=== PATIENT | female | born 1985 | race Caucasian/White ===

== ENCOUNTER 2017-02-11 11:32 | Emergency (ER) | payer OTHER ==
[2017-02-11 11:43] VITALS: BP 127/78; PULSE 72; TEMP 98.1; BMI 38.8
--- NOTE | 2017-02-11 12:16 | PDOC ---
History of Present Illness - General Chief Complaint: Back Pain Stated Complaint: BACK PAIN Time Seen by Provider: 02/11/17 11:50 History Source: Patient Exam Limitations: No Limitations - History of Present Illness Initial Comments: 02/11/17 12:22 Patient had recurrence of low back pain that started yesterday that is similar to her previous back issue. Was seen here approximately 4 months ago and was treated for spasm.. Uncertain as to status but does not feel is . States was treated with cyclobenzaprine and Motrin which resolved her pain completely. Denies Fever, shortness of breath cough, any problems with bowel or bladder, denies numbness or tingling to hands or feet, denies any exercise changes or recent injury/trauma. 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 daily Occurred: reports: yesterday Severity: reports: moderate Pain Location: reports: back Modifying Factors: improves with: None Loss of Consciousness: no loss of consciousness Associated Symptoms (Fall): denies symptoms Past History - Travel Traveled outside of the country in the last 30 days: No Close contact w/someone who was outside of country & ill: No - Past Medical History Allergies/Adverse Reactions: Allergies Allergy/AdvReac Type Severity Reaction Status Date / Time No Known Allergies Allergy Verified 02/11/17 12:09 Home Medications: Ambulatory Orders Cyclobenzaprine HCl [Flexeril 10 mg] 10 mg PO BID PRN #14 tablet 02/11/17 Nitrofurantoin Monohyd/M-Cryst [Macrobid -] 100 mg PO BID #14 capsule 02/11/17 Asthma: No Cancer: No Cardiac Disorders: No Diabetes: No HTN: No Seizures: No Thyroid Disease: No - Surgical History Cholecystectomy: Yes - Reproductive History (#): 4 Para: 3 Therapeutic (s) & number: Yes (1) - Suicide/Smoking/Psychosocial Hx Smoking Status: No Smoking History: Never smoked Have you smoked in the past 12 months: No Number of Cigarettes Smoked Daily: 0 Hx Alcohol Use: No Drug/Substance Use Hx: No Substance Use Type: None Hx Substance Use Treatment: No Trauma Specific PMHX - Complaint Specific PMHX Arthritis: No Back Injury: Yes (last year had same symptoms ) Review of Systems - Review of Systems Able to Perform ROS?: Yes Is the patient limited Maori proficient: Yes Constitutional: Yes: Symptoms Reported, See HPI, Malaise. No: Fever, Loss of Appetite HEENTM: Yes: See HPI. No: Symptoms Reported Musculoskeletal: Yes: Symptoms Reported, See HPI, Muscle Pain Integumentary: No: Symptoms Reported All Other Systems: Reviewed and Negative *Physical Exam - Vital Signs Last Vital Signs Temp Pulse Resp BP Pulse Ox 98.1 F 72 16 127/78 99 02/11/17 11:41 02/11/17 11:41 02/11/17 11:41 02/11/17 11:41 02/11/17 11:41 - Physical Exam General Appearance: Yes: Appropriately Dressed, Apparent Distress HEENT: positive: Normal ENT Inspection, TMs Normal, Pharynx Normal Neck: positive: Supple. negative: Tender Respiratory/Chest: positive: Lungs Clear Musculoskeletal: positive: Normal Inspection, Decreased Range of Motion, Muscle Spasm (tenderness and spasm palpated to the right and left paravertebral spinous muscles primarily lumbar spine, worse on the right than the left. Range of motion is limited secondary to this tenderness. Has no true bone tenderness or vertebral crepitus or step-offs.). negative: CVA Tenderness Extremity: positive: Normal Capillary Refill, Normal Inspection Integumentary: positive: Dry, Warm, Pale. negative: Normal Color Neurologic: positive: laboratory cureman II-XII NML intact, Fully Oriented, Alert, Normal Mood/ Affect, Normal Response, Motor Strength 5/5 Progress Note - Progress Note Progress Note: Back strain, will treat with NSAIDs and cyclobenzaprine. Medical Decision Making - Medical Decision Making 02/11/17 12:50 With analysis of urinalysis shows +3 leukocyte esterase but minimal bacteria. Patient states has had frequency over the past few days without burning pain or foul smell but states has had frequent urges to go. We will treat with Macrobid and watch for culture results in the next 2 days *DC/Admit/Observation/Transfer Diagnosis at time of Disposition: Low back pain Qualifiers: Chronicity: acute Back pain laterality: unspecified Sciatica presence: without sciatica Qualified Code(s): M54.5 - Low back pain UTI (urinary tract infection) Qualifiers: Urinary tract infection type: acute cystitis Hematuria presence: without hematuria Qualified Code(s): N30.00 - Acute cystitis without hematuria - Discharge Dispostion Disposition: HOME Condition at time of disposition: Stable Admit: No - Referrals - Patient Instructions Printed Discharge Instructions: DI for Back Strain or Sprain Additional Instructions: Rest, no heavy lifting or exercise until pain is resolved Hot soaks to neck and low back as often as possible/hot showers or Jacuzzis No massage or therapy until spasm is gone Continue ibuprofen 2-200 mg tablets every 6 hours for the next 3 days then as needed for pain and swelling Cyclobenzaprine 1-10mg every 8 hours as needed for spasm If not significant improvement within 24 hours with medication and rest regime, followup with private physician for change in medications and /or therapy. - Post Discharge Activity Forms/Work/School Notes: Back to Work
[2017-02-11 12:30] LABS: URINE APPEARANCE CLOUDY; URINE BILIRUBIN NEGATIVE (NEGATIVE); URINE BLOOD NEGATIVE (NEGATIVE); URINE COLOR YELLOW; URINE GLUCOSE (UA) NEGATIVE (NEGATIVE); URINE KETONE NEGATIVE (NEGATIVE); URINE NITRITE NEGATIVE (NEGATIVE); URINE PROTEIN NEGATIVE (NEGATIVE); URINE UROBILINOGEN NEGATIVE mg/dL (0.2-1.0)
[2017-02-11 12:31] LABS: HCG,QUALITATIVE URINE NEGATIVE
[2017-02-11 12:32] LABS: URINE LEUK ESTERASE 3+ (NEGATIVE)
[2017-02-11 12:33] LABS: EPI CELLS MANY /HPF (FEW); URINE BACTERIA RARE /hpf (NONE SEEN); URINE MUCUS RARE
[2017-02-11] MEDS ORDERED: KETOROLAC TROMETHAMINE 60 MG/2 ML VIAL IM ONE (12:44)
[2017-02-11] MEDS ORDERED: KETOROLAC TROMETHAMINE 60 MG/2 ML VIAL ONE (12:50)
== END 2017-02-11 12:55 | disposition home or self-care (01) ==
LOC: JERFT 11:32
PROC: 3E0233Z Introduction of Anti-inflammatory into Muscle, Percutaneous Approach (ICD-10-PCS; principal; 2017-02-11)
DX: N30.00 Acute cystitis without hematuria (principal)
CPT/HCPCS: 81003; 81015; 84703; 87086; 96372; 99281-25

== ENCOUNTER 2017-03-13 17:13 | Emergency (ER) | payer OTHER ==
--- NOTE | 2017-03-13 17:32 | PDOC ---
Rapid Medical Evaluation Time Seen by Provider: 03/13/17 17:32 Medical Evaluation: Allergies Allergy/AdvReac Type Severity Reaction Status Date / Time No Known Allergies Allergy Verified 02/11/17 12:09 03/13/17 17:32 This is an otherwise healthy 32 year old female who presents with one day of vaginal discharge. Recently completed course of Macrobid for UTI. Suprapubic pain, no other abdominal pain. V/s unremarkable. UA/culture Urine Urine GC/CT
[2017-03-13 17:35] VITALS: BP 118/82; PULSE 72; TEMP 98.2; BMI 40.0
[2017-03-13 18:34] LABS: HCG,QUALITATIVE URINE NEGATIVE
[2017-03-13 18:35] LABS: URINE APPEARANCE CLEAR; URINE BILIRUBIN NEGATIVE (NEGATIVE); URINE BLOOD 1+ (NEGATIVE); URINE COLOR STRAW; URINE GLUCOSE (UA) NEGATIVE (NEGATIVE); URINE KETONE NEGATIVE (NEGATIVE); URINE NITRITE NEGATIVE (NEGATIVE); URINE PROTEIN NEGATIVE (NEGATIVE); URINE UROBILINOGEN NEGATIVE mg/dL (0.2-1.0)
[2017-03-13 18:36] LABS: URINE LEUK ESTERASE 2+ (NEGATIVE)
[2017-03-13 19:13] LABS: EPI CELLS RARE /HPF (FEW); URINE BACTERIA RARE /hpf (NONE SEEN)
[2017-03-13] MEDS ORDERED: AZITHROMYCIN 250 MG TABLET PO ONE (19:20)
--- NOTE | 2017-03-13 19:20 | PDOC ---
History of Present Illness - General Chief Complaint: Vaginal Sxs Stated Complaint: PAIN Time Seen by Provider: 03/13/17 17:32 History Source: Patient - History of Present Illness Timing/Duration: reports: constant Abdominal Pain Onset Location: reports: other (pelvic) Past History - Past Medical History Allergies/Adverse Reactions: Allergies Allergy/AdvReac Type Severity Reaction Status Date / Time No Known Allergies Allergy Verified 03/13/17 17:32 Home Medications: Ambulatory Orders Doxycycline Hyclate 100 mg PO BID #27 tablet 03/13/17 Ibuprofen [Motrin -] 600 mg PO QID #28 tablet 03/13/17 Asthma: No Cancer: No Cardiac Disorders: No Diabetes: No HTN: No Seizures: No Thyroid Disease: No - Surgical History Cholecystectomy: Yes - Reproductive History (#): 4 Para: 3 Therapeutic (s) & number: Yes (1) - Suicide/Smoking/Psychosocial Hx Smoking Status: No Smoking History: Never smoked Have you smoked in the past 12 months: No Number of Cigarettes Smoked Daily: 0 Hx Alcohol Use: No Drug/Substance Use Hx: No Substance Use Type: None Hx Substance Use Treatment: No Review of Systems - Review of Systems Constitutional: No: Chills, Fever ABD/GI: Yes: Abdominal cramping. No: Nausea, Vomiting : Yes: Discharge, Frequency. No: Dysuria, Flank Pain *Physical Exam - Vital Signs Last Vital Signs Temp Pulse Resp BP Pulse Ox 98.2 F 72 18 118/82 100 03/13/17 17:32 03/13/17 17:32 03/13/17 17:32 03/13/17 17:32 03/13/17 17:32 - Physical Exam General Appearance: Yes: Appropriately Dressed. No: Apparent Distress HEENT: positive: Normal Voice Neck: positive: Supple Respiratory/Chest: negative: Respiratory Distress Female Pelvic Exam: positive: cervical os closed, discharge (mod amount of yellow discharge), adnexal tenderness (on the R, no CMT). negative: CMT Gastrointestinal/Abdominal: positive: Normal Bowel Sounds, Tender (over mid suprapubic, NT over mcburneys, no CVAT), Soft. negative: Distended, Guarding, Rebound Musculoskeletal: negative: CVA Tenderness Integumentary: positive: Dry, Warm Neurologic: positive: Fully Oriented, Alert, Normal Mood/Affect ED Treatment Course - ADDITIONAL ORDERS Additional order review: Laboratory Results 03/13/17 17:47 Urine Color Straw Urine Appearance Clear Urine pH 6.0 Ur Specific [place] 1.006 Urine Protein Negative Urine Glucose (UA) Negative Urine Ketones Negative Urine Blood 1+ H Urine Nitrite Negative Urine Bilirubin Negative Urine Urobilinogen Negative Ur Leukocyte Esterase 2+ H Urine HCG, Qual Negative Medical Decision Making - Medical Decision Making 03/13/17 19:07 32-year-old female, , no medical history here with mid lower abdominal pain 2 days, constant and associated with brown discharge today. No foul odor or itching. Also report possible urinary frequency. No flank pain, nausea, vomiting, fever or chills. No history of UTIs or STDs. No new sexual partners. No history of similar symptoms. Pt well-appearing and stable with tenderness to mid lower abdomen with moderate amount of yellowish discharge from cervix with right adnexal tenderness concerning forn for PID. Urine negative. UA unremarkable. STD culture sent. 1 g of azithro po, 250 IM of Rocephin given in ED, along with first dose of doxycycline. DC with Doxy for 2 weeks. Strict return precautions given *DC/Admit/Observation/Transfer Diagnosis at time of Disposition: Pelvic pain - Discharge Dispostion Disposition: HOME Condition at time of disposition: Good - Prescriptions Prescriptions: Doxycycline Hyclate 100 mg PO BID #27 tablet Ibuprofen [Motrin -] 600 mg PO QID #28 tablet - Referrals Referrals: Julianna Magdaleno MD [Primary Care Provider] - - Patient Instructions Printed Discharge Instructions: DI for Pelvic Inflammatory Disease Additional Instructions: You might have a condition called pelvic inflammatory disease, which is most commonly caused by STDs and other bacteria. We sent off your STD cultures and will call you in 2-3 days if it's positive. Please take doxycycline as directed for 2 weeks. Return to ER immediately for worsening of symptoms - Post Discharge Activity
[2017-03-13] MEDS ORDERED: DOXYCYCLINE HYCLATE 100 MG CAPSULE PO ONE ×2 (19:21→19:28)
[2017-03-13] MEDS ORDERED: AZITHROMYCIN 500 MG TABLET ONE ×2 (19:24→19:27)
[2017-03-13] MEDS ORDERED: IBUPROFEN 400 MG TABLET (FP) PO ONE ×2 (19:25→19:41)
== END 2017-03-13 19:51 | disposition home or self-care (01) ==
LOC: JERFT 17:13
DX: R10.2 Pelvic and perineal pain (principal); N89.8 Other specified noninflammatory disorders of vagina
CPT/HCPCS: 36415; 81003; 81015; 84703; 87086; 87491; 87591; 96372; 99281-25

== ENCOUNTER 2017-06-11 16:39 | Emergency (ER) | payer OTHER ==
[2017-06-11 17:29] VITALS: TEMP 98.9; BMI 40.6
[2017-06-11] MEDS ORDERED: ACETAMINOPHEN 500 MG TABLET (FP) PO ONE (17:52)
--- NOTE | 2017-06-11 18:19 | PDOC ---
History of Present Illness - General Chief Complaint: Vaginal Bleeding Stated Complaint: VAGINAL BLEEDING (6 WKS ) Time Seen by Provider: 06/11/17 17:11 History Source: Patient Exam Limitations: No Limitations - History of Present Illness Travel History: No Initial Comments: 06/11/17 18:00 32-year-old female presents to the ED for evaluation of vaginal bleeding. Patient states this approximate 6 weeks based on her LMP and did a home test last week which confirmed the . Patient states is followed by Dr. Radha Johnson and has her first appointment tomorrow. Patient states did not have an ultrasound for this and decided come to the ER when she had noticed vaginal bleeding upon urination this morning. Patient has no abdominal pain except for mild low back pain which she describes an aching pressure. Patient has no history of ectopic and denies any urinary complaints. Timing/Duration: reports: intermittent Quality: reports: mild Activities at Onset: reports: none Aggravating Factors: improves with: None Alleviating Factors: improves with: None Past History - Past Medical History Allergies/Adverse Reactions: Allergies Allergy/AdvReac Type Severity Reaction Status Date / Time No Known Allergies Allergy Verified 06/28/17 10:36 Home Medications: Ambulatory Orders Cephalexin Monohydrate [Keflex -] 500 mg PO BID #14 capsule 06/28/17 Asthma: No Cancer: No Cardiac Disorders: No COPD: No Diabetes: No HTN: No Seizures: No Thyroid Disease: No - Surgical History Cholecystectomy: Yes - Reproductive History (#): 4 Para: 3 Therapeutic (s) & number: Yes (1) - Suicide/Smoking/Psychosocial Hx Smoking Status: No Smoking History: Never smoked Have you smoked in the past 12 months: No Number of Cigarettes Smoked Daily: 0 Information on smoking cessation initiated: No Hx Alcohol Use: No Drug/Substance Use Hx: No Substance Use Type: None Hx Substance Use Treatment: No Patient Lives Alone: No Lives with/in: spouse/SO Review of Systems - Review of Systems Able to Perform ROS?: No Constitutional: No: Symptoms Reported HEENTM: No: Symptoms Reported Respiratory: No: Symptoms reported Cardiac (ROS): No: Symptoms Reported ABD/GI: Yes: Abdominal cramping (mild mid lower) : Yes: Discharge Musculoskeletal: Yes: Back Pain Integumentary: No: Symptoms Reported Neurological: No: Symptoms reported Endocrine: No: Symptoms Reported *Physical Exam - Vital Signs Last Vital Signs Temp Pulse Resp BP Pulse Ox 98.9 F 69 18 93/67 100 06/11/17 17:26 06/11/17 17:26 06/11/17 17:26 06/11/17 17:26 06/11/17 17:26 - Physical Exam General Appearance: Yes: Nourished, Appropriately Dressed. No: Apparent Distress HEENT: negative: Pale Conjunctivae Neck: positive: Normal Thyroid, Supple Respiratory/Chest: positive: Lungs Clear, Normal Breath Sounds. negative: Respiratory Distress, Accessory Muscle Use Cardiovascular: positive: Regular Rhythm, Regular Rate. negative: Murmur Female Pelvic Exam: positive: normal external exam (minimal pinkish red blood, no clots) Gastrointestinal/Abdominal: positive: Soft, Tenderness (mid suprapubic) Integumentary: positive: Normal Color, Warm, Moist Neurologic: positive: Motor Strength 5/5 (ambulatory) ED Treatment Course - LABORATORY CBC & Chemistry Diagram: 06/11/17 18:15 06/11/17 18:15 Medical Decision Making - Medical Decision Making 06/11/17 18:00 Patient here with complaints of vaginal spotting since urinating this morning. Patient on exam had mild mid suprapubic tenderness . Patient has not had an ultrasound for this and has no other complaints at this time. Patient ordered for CBC, comp, urine urine culture, beta hCG, type and screen and ultrasound. Patient also ordered Tylenol for pain. 06/11/17 18:56 Laboratory Tests 06/11/17 06/11/17 18:15 18:15 WBC 8.1 Hgb 12.4 D Hct 35.3 D Neutrophils % 65.9 Urine Blood 2+ H Urine Nitrite Negative Ur Leukocyte Esterase Trace Pt sent to u/s. *DC/Admit/Observation/Transfer Diagnosis at time of Disposition: Threatened - Discharge Dispostion Disposition: HOME Condition at time of disposition: Good - Referrals Referrals: Tiffany Johnson MD [Primary Care Provider] - - Patient Instructions Printed Discharge Instructions: Threatened Additional Instructions: drink plenty of fluids. 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 - Post Discharge Activity Forms/Work/School Notes: Back to Work
[2017-06-11] MEDS ORDERED: ACETAMINOPHEN 325 MG TABLET (FP) ONE (18:24)
[2017-06-11 18:42] LABS: BASO % 0.5 % (0-2.0); EOS % 1.7 % (0-4.5); HEMATOCRIT 35.3 % (32.4-45.2); HEMOGLOBIN 12.4 GM/dL (10.7-15.3); LYMPH % 27.2 % (8-40); MCH 31.9 pg (25.7-33.7); MCHC 35.1 g/dl (32.0-36.0); MEAN CELL VOLUME 90.8 fl (80-96); MEAN PLT VOLUME 8.1 fl (7.5-11.1); MONO % 4.7 % (3.8-10.2); NEUT % 65.9 % (42.8-82.8); PLATELET COUNT 270 K/MM3 (134-434); RBC 3.89 M/mm3 (3.60-5.2); RDW 13.9 % (11.6-15.6); WHITE BLOOD COUNT 8.1 K/mm3 (4.0-10.0)
[2017-06-11 18:44] LABS: URINE APPEARANCE CLEAR; URINE BILIRUBIN NEGATIVE (<2.0 mg/dL); URINE COLOR LTYELLOW; URINE GLUCOSE (UA) NEGATIVE (NEGATIVE); URINE KETONE NEGATIVE (NEGATIVE); URINE LEUK ESTERASE TRACE (NEGATIVE); URINE NITRITE NEGATIVE (NEGATIVE); URINE PROTEIN NEGATIVE (NEGATIVE); URINE UROBILINOGEN NEGATIVE mg/dL (0.2-1.0)
[2017-06-11 18:48] LABS: EPI CELLS RARE /HPF (FEW); URINE BACTERIA RARE /hpf (NONE SEEN)
[2017-06-11 19:25] LABS: ALBUMIN 3.8 g/dl (3.4-5.0); ANION GAP 9 (8-16); BILIRUBIN,TOTAL 0.3 mg/dL (0.2-1.0); BLOOD UREA NITROGEN 8 mg/dL (7-18); CALCIUM 8.7 mg/dL (8.5-10.1); CHLORIDE 106 mmol/L (98-107); CO2 22 mmol/L (21-32); CREATININE 0.5 mg/dL (0.55-1.02); GLUCOSE,RANDOM 82 mg/dL (74-106); POTASSIUM 3.9 mmol/L (3.5-5.1); SGOT/AST 28 U/L (15-37); SGPT/ALT 47 U/L (12-78); SODIUM 137 mmol/L (136-145); TOT PROT 7.8 g/dl (6.4-8.2)
[2017-06-11 19:41] LABS: ALK PHOS 89 U/L (45-117)
--- NOTE | 2017-06-11 20:56 | PDOC ---
*Physical Exam - Vital Signs Last Vital Signs Temp Pulse Resp BP Pulse Ox 98.9 F 69 18 93/67 100 06/11/17 17:26 06/11/17 17:26 06/11/17 17:26 06/11/17 17:26 06/11/17 17:26 - Physical Exam General Appearance: Yes: Appropriately Dressed Gastrointestinal/Abdominal: positive: Normal Bowel Sounds, Soft. negative: Tender Musculoskeletal: positive: Normal Inspection Extremity: positive: Normal Capillary Refill, Normal Inspection, Normal Range of Motion Integumentary: positive: Normal Color, Dry, Warm Neurologic: positive: Fully Oriented, Alert, Normal Mood/Affect ED Treatment Course - LABORATORY CBC & Chemistry Diagram: 06/11/17 18:15 06/11/17 18:15 - ADDITIONAL ORDERS Additional order review: Laboratory Results 06/11/17 06/11/17 06/11/17 18:15 18:15 18:15 Sodium 137 Potassium 3.9 Chloride 106 Carbon Dioxide 22 Anion Gap 9 BUN 8 Creatinine 0.5 L Creat Clearance w eGFR > 60 Random Glucose 82 Calcium 8.7 Total Bilirubin 0.3 D AST 28 ALT 47 Alkaline Phosphatase 89 Total Protein 7.8 Albumin 3.8 Beta HCG, Quant 71879.6 Urine Color Ltyellow Urine Appearance Clear Urine pH 6.0 Ur Specific [place] 1.011 Urine Protein Negative Urine Glucose (UA) Negative Urine Ketones Negative Urine Blood 2+ H Urine Nitrite Negative Urine Bilirubin Negative Urine Urobilinogen Negative Ur Leukocyte Esterase Trace Urine WBC (Auto) 4 Urine RBC (Auto) <1 Ur Epithelial Cells Rare Urine Bacteria Rare Blood Type O POSITIVE Antibody Screen Negative 06/11/17 18:15 RBC 3.89 MCV 90.8 MCHC 35.1 RDW 13.9 D MPV 8.1 Neutrophils % 65.9 Lymphocytes % 27.2 D Monocytes % 4.7 Eosinophils % 1.7 D Basophils % 0.5 - Medications Given in the ED: ED Medications Discontinued Medications Generic Name Dose Route Start Last Admin Trade Name Freq PRN Reason Stop Dose Admin Acetaminophen 975 mg 06/11/17 17:52 06/11/17 18:30 Tylenol - PO 06/11/17 17:53 975 mg ONCE ONE Administration Medical Decision Making - Medical Decision Making 06/11/17 20:45 + IUP 6 weeks with heart activity documented. Small to moderate subchorionic hemorrhage. US results discussed with patient. patient to follow up with manager of purchasing outpatient *DC/Admit/Observation/Transfer Diagnosis at time of Disposition: Threatened - Discharge Dispostion Disposition: HOME Condition at time of disposition: Good - Referrals Referrals: Tiffany Johnson MD [Primary Care Provider] - - Patient Instructions Printed Discharge Instructions: Threatened Additional Instructions: drink plenty of fluids. pelvic rest follow up with your manager of purchasing as soon as possible. - Post Discharge Activity Forms/Work/School Notes: Back to Work
[2017-06-11 21:12] VITALS: BP 100/70; PULSE 79
== END 2017-06-11 21:13 | disposition home or self-care (01) ==
LOC: JER 16:39
DX: O26.891 Other specified pregnancy related conditions, first trimester (principal); O20.0 Threatened abortion; Z3A.01 Less than 8 weeks gestation of pregnancy
CPT/HCPCS: 36415; 76801-TC; 80053; 81003; 81015; 84702; 85025; 86850; 86900; 86901; 87086; 99284-25

== ENCOUNTER 2017-06-28 10:28 | Emergency (ER) | payer OTHER ==
[2017-06-28 10:39] VITALS: TEMP 98.4; BMI 39.1
--- NOTE | 2017-06-28 11:17 | PDOC ---
History of Present Illness - General Chief Complaint: Vaginal Bleeding Stated Complaint: BLEEDING (9 WKS ) Time Seen by Provider: 06/28/17 11:02 History Source: Patient Exam Limitations: No Limitations - History of Present Illness Initial Comments: 06/28/17 11:14 The patient is a 32F at 9 weeks who presents to the ER with bleeding in her urine. The patient states that she had similar symptoms 2-3 weeks ago and was evaluated in our facility. The patient states that 45 minutes ago she felt suprapubic pressure and had blood in her urine. She denies any vaginal bleeding , discharge, or cramping. She denies fever, chills, dyuria, nausea, vomiting. Past History - Past Medical History Allergies/Adverse Reactions: Allergies Allergy/AdvReac Type Severity Reaction Status Date / Time No Known Allergies Allergy Verified 06/28/17 10:36 Home Medications: Ambulatory Orders Cephalexin Monohydrate [Keflex -] 500 mg PO BID #14 capsule 06/28/17 Asthma: No Cancer: No Cardiac Disorders: No COPD: No Diabetes: No HTN: No Seizures: No Thyroid Disease: No Other medical history: DENIES. - Surgical History Cholecystectomy: Yes - Reproductive History (#): 4 Para: 3 Therapeutic (s) & number: Yes (1) - Immunization History Immunization Up to Date: Yes - Suicide/Smoking/Psychosocial Hx Smoking Status: No Smoking History: Never smoked Have you smoked in the past 12 months: No Number of Cigarettes Smoked Daily: 0 Hx Alcohol Use: No Drug/Substance Use Hx: No Substance Use Type: None Hx Substance Use Treatment: No Review of Systems - Review of Systems Able to Perform ROS?: Yes Comments:: 06/28/17 11:18 GENERAL/CONSTITUTIONAL: No fever or chills. No weakness. HEAD, EYES, EARS, NOSE AND THROAT: No change in vision. No ear pain or discharge. No sore throat. CARDIOVASCULAR: No chest pain, palpitations, or lightheadedness. RESPIRATORY: No cough, wheezing, shortness of breath, or hemoptysis. GASTROINTESTINAL: No nausea, vomiting, diarrhea, constipation, or abdominal pain. GENITOURINARY: Positive for hematuria. No dysuria, frequency, or change in urination. MUSCULOSKELETAL: No joint or muscle swelling or pain. No neck or back pain. SKIN: No rash or lesions. NEUROLOGIC: No headache, numbness, tingling, weakness, loss of consciousness, or change in strength/sensation. ENDOCRINE: No increased thirst. No abnormal weight change. HEMATOLOGIC/LYMPHATIC: No anemia, easy bleeding, or history of blood clots. ALLERGIC/IMMUNOLOGIC: No hives or skin allergy. Is the patient limited Mongolian proficient: No *Physical Exam - Vital Signs Last Vital Signs Temp Pulse Resp BP Pulse Ox 98.4 F 78 17 114/74 98 06/28/17 10:37 06/28/17 10:37 06/28/17 10:37 06/28/17 10:37 06/28/17 10:37 - Physical Exam Comments: 06/28/17 11:18 GENERAL: Well developed, well nourished. Awake and alert. No acute distress. HEENT: Normocephalic, atraumatic. Hearing grossly normal. Moist mucous membranes. PERRLA, EOMI. No conjunctival pallor. Sclera are non-icteric. NECK: Supple. Full ROM. CARDIOVASCULAR: Regular rate and rhythm. No murmurs, rubs, or gallops. PULMONARY: No evidence of respiratory distress. Lungs clear to auscultation bilaterally. No wheezing, rales or rhonchi. ABDOMINAL: Soft. Non-tender. Non-distended. No rebound or guarding. GENITOURINARY: No CVA tenderness bilaterally. PELVIC: Normal external genitalia. No CMT. L adnexal tenderness. MUSCULOSKELETAL: Normal range of motion at all joints. No bony deformities or tenderness. EXTREMITIES: No cyanosis. No clubbing. No edema. No calf tenderness or swelling. SKIN: Warm and dry. Normal capillary refill. No rashes. No jaundice. NEUROLOGICAL: Alert, awake, appropriate. Cranial nerves 2-12 intact. Normal speech. Gait is normal without ataxia. PSYCHIATRIC: Cooperative. Good eye contact. Appropriate mood and affect. ED Treatment Course - LABORATORY CBC & Chemistry Diagram: 06/28/17 11:30 06/28/17 11:30 Medical Decision Making - Medical Decision Making 06/28/17 11:19 The patient is a 32F at 9 weeks who presents to the ER with recurrent hematuria. She was found to have a subchorionic hemorrhage which she followed up with her OB and they were not concerned. As the patient denies vaginal bleeding and discharge, I am less concerned for a miscarriage. Will perform pelvic. Will send UA and basic labs. Pending labs. 06/28/17 12:47 UA indicates hematuria with UTI. Will give one dose keflex in ED and prescribe outpt keflex with OB f/u. 06/28/17 15:41 U/S: Single, live intrauterine of 9 weeks 3 days gestational age with resolving subchorionic bleed since 06/11/2017. Will update pt and d/c with OB f/u and abx. *DC/Admit/Observation/Transfer Diagnosis at time of Disposition: Hematuria Qualifiers: Hematuria type: unspecified type Qualified Code(s): R31.9 - Hematuria, unspecified UTI (urinary tract infection) Qualifiers: Urinary tract infection type: site unspecified Hematuria presence: with hematuria Qualified Code(s): N39.0 - Urinary tract infection, site not specified ; R31.9 - Hematuria, unspecified - Discharge Dispostion Disposition: HOME Condition at time of disposition: Stable Decision to Admit order: No - Prescriptions Prescriptions: Cephalexin Monohydrate [Keflex -] 500 mg PO BID #14 capsule - Referrals - Patient Instructions Printed Discharge Instructions: DI for Hematuria Additional Instructions: Please follow up with your OBSTETRIC ASSISTANT in 2-3 days. Please return to the ER if you have any signs or symptoms of chest pain, shortness of breath, uncontrollable fever, chills, nausea, vomiting, numbness, tingling, or weakness in any part of your body, changes in vision, or slurred speech. Please take your medications as prescribed. Please return to the ER if symptoms persist, worsen, or new symptoms arise. - Post Discharge Activity
[2017-06-28 11:25] LABS: URINE APPEARANCE SLCLOUDY; URINE BILIRUBIN NEGATIVE (<2.0 mg/dL); URINE COLOR YELLOW; URINE GLUCOSE (UA) 2+ (NEGATIVE); URINE KETONE NEGATIVE (NEGATIVE); URINE NITRITE NEGATIVE (NEGATIVE); URINE PROTEIN NEGATIVE (NEGATIVE); URINE UROBILINOGEN NEGATIVE mg/dL (0.2-1.0)
[2017-06-28 11:26] LABS: URINE LEUK ESTERASE 2+ (NEGATIVE)
[2017-06-28 11:31] LABS: EPI CELLS FEW /HPF (FEW); URINE BACTERIA FEW /hpf (NONE SEEN); URINE MUCUS RARE
[2017-06-28 11:56] LABS: BASO % 0.6 % (0-2.0); EOS % 1.8 % (0-4.5); HEMATOCRIT 34.6 % (32.4-45.2); HEMOGLOBIN 11.9 GM/dL (10.7-15.3); LYMPH % 25.3 % (8-40); MCH 30.9 pg (25.7-33.7); MCHC 34.4 g/dl (32.0-36.0); MEAN CELL VOLUME 89.7 fl (80-96); MEAN PLT VOLUME 7.9 fl (7.5-11.1); MONO % 5.7 % (3.8-10.2); NEUT % 66.6 % (42.8-82.8); PLATELET COUNT 271 K/MM3 (134-434); RBC 3.85 M/mm3 (3.60-5.2); RDW 13.6 % (11.6-15.6); WHITE BLOOD COUNT 6.2 K/mm3 (4.0-10.0)
[2017-06-28 12:22] LABS: ALBUMIN 3.4 g/dl (3.4-5.0); ALK PHOS 76 U/L (45-117); ANION GAP 8 (8-16); BILIRUBIN,TOTAL 0.3 mg/dL (0.2-1.0); BLOOD UREA NITROGEN 7 mg/dL (7-18); CALCIUM 8.4 mg/dL (8.5-10.1); CHLORIDE 107 mmol/L (98-107); CO2 23 mmol/L (21-32); CREATININE 0.5 mg/dL (0.55-1.02); GLUCOSE,RANDOM 121 mg/dL (74-106); SGPT/ALT 37 U/L (12-78); SODIUM 138 mmol/L (136-145); TOT PROT 7.4 g/dl (6.4-8.2)
[2017-06-28 12:34] LABS: POTASSIUM 3.8 mmol/L (3.5-5.1); SGOT/AST 29 U/L (15-37)
[2017-06-28] MEDS ORDERED: CEPHALEXIN MONOHYDRATE 500 MG CAPSULE (UD) PO ONE (12:47)
--- NOTE | 2017-06-28 13:13 | PDOC ---
Attending Attestation - Resident Resident Name: Luis F Du - ED Attending Attestation I have performed the following: I have examined & evaluated the patient, The case was reviewed & discussed with the resident, I agree w/resident's findings & plan - HPI HPI: 06/28/17 13:10 32y/o F 19wks gestation complicate by ED visit 06/11 for subchorionic hemorrhage, treated conservatively, now with painless hematuria this morning. no other vaginal discharge or bleeding, no f/c, no cramping. - Physicial Exam PE: 06/28/17 13:11 VSS, afebrile well appearing abd soft/nt/nd bs nl . no cvat pelvic per resident note - Medical Decision Making 06/28/17 13:12 32y/o F with painless hematuria/vaginal bleeding in 2nd trimester. prior subchorionic hematoma, ? cystitis v. vaginal bleeding RH positive hcg rising UA with elevated RBC and WBC. discussed with OB, will treat empirically with abx and send cx. repeat endovaginal sono, discuss with OB
[2017-06-28] MEDS ORDERED: CEPHALEXIN MONOHYDRATE 500 MG CAPSULE (UD) ONE (13:39)
[2017-06-28 16:21] VITALS: BP 115/67; PULSE 77
== END 2017-06-28 16:21 | disposition home or self-care (01) ==
LOC: JER 10:28
DX: O26.891 Other specified pregnancy related conditions, first trimester (principal); O23.31 Infections of other parts of urinary tract in pregnancy, first trimester; R31.9 Hematuria, unspecified; Z3A.09 9 weeks gestation of pregnancy
CPT/HCPCS: 36415; 76817-TC; 80053; 81003; 81015; 84702; 85025; 87086; 99282-25

== ENCOUNTER 2017-11-28 09:29 | Emergency (ER) | payer OTHER ==
[2017-11-28 09:40] VITALS: BMI 42.7
[2017-11-28] MEDS ORDERED: SODIUM CHLORIDE 1,000 ML IV STA (09:49)
[2017-11-28] MEDS ORDERED: FAMOTIDINE 20 MG/50 ML IVPB 20 MG/50 ML MG IVPB ONE ×2 (09:49→10:14)
--- NOTE | 2017-11-28 09:53 | PDOC ---
History of Present Illness - General Chief Complaint: Pain Stated Complaint: STOMACH PAIN/VOMITING/31 WKS Time Seen by Provider: 11/28/17 09:47 History Source: Patient Exam Limitations: No Limitations - History of Present Illness Initial Comments: 11/28/17 11:07 Jed 32 YOF at 31 weeks gestation p/w epigastric pain, nausea and NBNB emesis x 1 day, beginning yesterday evening 6pm. Epigastric pain a/w food intake , described as cramping. No f/c, urinary sx, diarrhea, cp or sob, malik or dizziness. Denies VB or discharge or LOF/contractions. OB: 2 Gr[address] Morgan, Dr More TVUS 06/2017 with resolving subchorionic hematoma. Has had uncomplicated , takes prenatals AGAPITO 01/29/18. Meds: prenatals. NKA PSH: cholecystectomy Social: no tobacco or ETOH/drug use. 11/28/17 11:08 Past History - Past Medical History Allergies/Adverse Reactions: Allergies Allergy/AdvReac Type Severity Reaction Status Date / Time No Known Allergies Allergy Verified 06/28/17 10:36 Home Medications: Ambulatory Orders Doxylamine Succinate/Vit B6 [Kalpana Ortega 10-10 mg Tablet] 1 each PO DAILY PRN # 10 tablet. 11/28/17 Famotidine [Pepcid] 20 mg PO BID PRN 10 Days #20 tablet 11/28/17 Mag Hydrox/Al Hydrox/Simeth [Mylanta Suspension -] 30 ml PO Q6H PRN #1 bottle No122/Iron/Folic Acid [ Multi Tablet] 1 each PO DAILY 11/28/17 Asthma: No Cancer: No Cardiac Disorders: No COPD: No Diabetes: No HTN: No Seizures: No Thyroid Disease: No - Surgical History Cholecystectomy: Yes - Reproductive History (#): 4 Para: 3 Therapeutic (s) & number: Yes (1) Spontaneous : 0 - Immunization History Immunization Up to Date: Yes - Suicide/Smoking/Psychosocial Hx Smoking Status: No Smoking History: Never smoked Have you smoked in the past 12 months: No Number of Cigarettes Smoked Daily: 0 Information on smoking cessation initiated: No Hx Alcohol Use: No Drug/Substance Use Hx: No Substance Use Type: None Hx Substance Use Treatment: No Review of Systems - Review of Systems Able to Perform ROS?: Yes Comments:: 11/28/17 11:08 Constitutional: no fevers or chills. HEENT: no headache or dizziness. No congestion. CVS: no cp or syncope. Resp: no sob. No cough. Abdomen: +abdominal pain, nausea or vomiting. Genitourinary: no urinary sx, hematuria. MUSCULOSKELETAL: No joint pain and swelling. No neck or back pain. SKIN: no redness or skin changes, no discharge, no rash. No wounds. Hematologic: no easy bruising/bleeding. NEUROLOGIC: No headache, dizziness, LOC or altered mental status. No weakness, numbness or tingling. All other systems reviewed and negative, or as documented in HPI. *Physical Exam - Vital Signs Last Vital Signs Temp Pulse Resp BP Pulse Ox 98.2 F 89 18 107/69 98 11/28/17 09:38 11/28/17 09:38 11/28/17 09:38 11/28/17 09:38 11/28/17 09:38 - Physical Exam Comments: 11/28/17 11:07 General: Well appearing, awake and alert, NAD. HEENT: NCAT, PERRL, EOMI, clear conjunctiva, anicteric, moist mucus membranes, clear oropharynx, no oral lesions.. Neck: neck supple, FROM Resp: CTAB, normal and even respirations, no respiratory distress CVS: RRR, no murmurs, 2+ peripheral pulses throughout, no peripheral edema Abdomen: soft, +gravid/ no Romo's sign, no Mcburney's point tenderness. + epigastric and LUQ tenderness, nonperitoneal. no flank or CVAT. Back: nontender, normal inspection and ROM MSK: no edema, LOYA x4, ROM intact. No clubbing or cyanosis. normal bulk and tone. Neuro: alert, oriented appropriately; no focal neurologic deficits Skin: warm and well perfused, cap refill <2 sec, normal color ED Treatment Course - LABORATORY CBC & Chemistry Diagram: 11/28/17 10:20 11/28/17 10:20 Medical Decision Making - Medical Decision Making 11/28/17 09:52 I, Krystle Hyman MD, attest that this document has been prepared under my direction and personally reviewed by me in its entirety. I further attest, that it accurately reflects all work, treatment, procedures and medical decision -making performed by me. MDM: Jed 32 YOF at 31 weeks gestation p/w AP and n/v. TVUS 06/2017 with resolving subchorionic hematoma. DDx. pancreatitis, hepatitis, GERD, esophageal spasm, gastritis, dehydration, electrolyte/metabolic derangements, UTI, pyelo in . Vital signs reviewed, wnl. Prior notes reviewed, including admissions, discharges and consultations. laboratory results and imaging reviewed, basic labs and lytes wnl, notable for_ . LFTs and lipase also normal. UA_neg for infection. ED course: no acute events, remained stable and well appearing. Clinically improved after interventions, including Pepcid and IVF, reglan IV and maalox. tolerating PO without difficulty, feels improved.. Dispo: med clear, transfer to L&D for monitoring as >20 weeks. return precautions given. rx meds sent to pharmacy, pepcid, maalox and diclegis for n/v, epigastric pain. [facility] pt verbalized understanding of information, impression and plan, questions answered. 11/28/17 11:09 11/28/17 12:32 *DC/Admit/Observation/Transfer Diagnosis at time of Disposition: Abdominal pain affecting - Discharge Dispostion Disposition: TRANSFER ACUTE CARE/OTHER HOSP Condition at time of disposition: Improved Decision to Admit order: No - Prescriptions Prescriptions: Doxylamine Succinate/Vit B6 [Kalpana Ortega 10-10 mg Tablet] 1 each PO DAILY PRN # 10 tablet. PRN Reason: Nausea And/Or Vomiting Famotidine [Pepcid] 20 mg PO BID PRN 10 Days #20 tablet PRN Reason: Nausea Mag Hydrox/Al Hydrox/Simeth [Mylanta Suspension -] 30 ml PO Q6H PRN #1 bottle PRN Reason: Nausea - Referrals Referrals: Anaya Flores MD [Primary Care Provider] - - Patient Instructions Printed Discharge Instructions: DI for Gastroesophageal Reflux Disease (GERD), DI for Abdominal Pain -- Early , GERD Diet Additional Instructions: Your laboratory / imaging results were normal you were given medications for your reflux and pain in you are not in labor, but you will be discharged to the Labor and delivery unit for monitoring Follow up with your physician and consultants as instructed, take your medications as instructed including Diclegis daily as needed, maalox with meals as needed for heartburn and Pepcid twice a day for heart burn. Return if worsening symptoms including fevers, headache, vomiting, visual or hearing disturbances, abdominal pain, chest pain, shortness of breath, syncope, dehydration, inability to take things by mouth/vomiting, altered mental status, vaginal bleeding or discharge, leakage of fluids or concern for having your baby earlier than expected or worsening concerning symptoms. your medications on discharge were sent to your pharmacy Keke resultados de laboratorio / imgenes fueron normales Te dieron medicamentos para el reflujo y el dolor donna el embarazo. usted no est en trabajo de parto, pat ser dado de mary beth a la unidad de [place] y parto para el monitoreo Jaci un seguimiento con bishop mdico y consultores segn las instrucciones, tome keke medicamentos segn las instrucciones, incluidos Diclegis diariamente, segn sea necesario, maalox con las comidas necesarias para la acidez estomacal y Pepcid dos veces al da para la quemadura del corazn. Regrese si los sntomas empeoran, incluyendo fiebre, dolor de april, vmitos, trastornos visuales o auditivos, dolor abdominal, dolor de pecho, falta de aliento, sncope, deshidratacin, incapacidad para rony cosas por la boca / vmitos, estado mental alterado, sangrado o secrecin vaginal, prdida de [place] o preocupacin por tener a bishop beb antes de lo esperado o empeoramiento de los sntomas. Keke medicamentos al mary beth fueron enviados a bishop farmacia. Print Language: OCCITAN - Post Discharge Activity
[2017-11-28 10:34] LABS: BASO % 0.3 % (0-2.0); EOS % 0.3 % (0-4.5); HEMATOCRIT 35.8 % (32.4-45.2); LYMPH % 7.7 % (8-40); MCH 30.7 pg (25.7-33.7); MCHC 33.6 g/dl (32.0-36.0); MEAN CELL VOLUME 91.3 fl (80-96); MEAN PLT VOLUME 7.8 fl (7.5-11.1); NEUT % 88.7 % (42.8-82.8); PLATELET COUNT 236 K/MM3 (134-434); RBC 3.91 M/mm3 (3.60-5.2); WHITE BLOOD COUNT 7.9 K/mm3 (4.0-10.0)
[2017-11-28] MEDS ORDERED: MAG HYDROX/AL HYDROX/SIMETH 30 ML UNIT-DOSE CUP PO ONE (11:02)
[2017-11-28] MEDS ORDERED: METOCLOPRAMIDE HCL INJECTION 10 MG/2 ML VIAL IVPUSH ONE (11:02)
[2017-11-28] MEDS ORDERED: METOCLOPRAMIDE HCL INJECTION 10 MG/2 ML VIAL ONE (11:07)
[2017-11-28] MEDS ORDERED: MAG HYDROX/AL HYDROX/SIMETH 30 ML UNIT-DOSE CUP ONE (11:07)
[2017-11-28 11:17] LABS: ALK PHOS 141 U/L (45-117); ANION GAP 10 MMOL/L (8-16); BILIRUBIN,TOTAL 0.9 mg/dL (0.2-1); BLOOD UREA NITROGEN 8 mg/dL (7-18); CALCIUM 8.1 mg/dL (8.5-10.1); CHLORIDE 106 mmol/L (98-107); CO2 23 mmol/L (21-32); CREATININE 0.5 mg/dL (0.55-1.3); GLUCOSE,RANDOM 102 mg/dL (74-106); LIPASE 68 U/L (73-393); POTASSIUM 3.6 mmol/L (3.5-5.1); SGOT/AST 56 U/L (15-37); SGPT/ALT 45 U/L (13-61); SODIUM 139 mmol/L (136-145); TOT PROT 7.1 g/dl (6.4-8.2)
[2017-11-28 11:50] LABS: URINE APPEARANCE CLEAR; URINE BILIRUBIN NEGATIVE (<2.0 mg/dL); URINE COLOR DKYELLOW; URINE GLUCOSE (UA) NEGATIVE (NEGATIVE); URINE KETONE 1+ (NEGATIVE); URINE LEUK ESTERASE TRACE (NEGATIVE); URINE NITRITE NEGATIVE (NEGATIVE); URINE PROTEIN 1+ (NEGATIVE)
[2017-11-28 12:03] LABS: EPI CELLS FEW /HPF (FEW); URINE MUCUS FEW
[2017-11-28 12:50] VITALS: BP 110/61; PULSE 87; TEMP 97.9
== END 2017-11-28 13:20 | disposition home or self-care (01) ==
LOC: JER 09:29
DX: S09.90XA Unspecified injury of head, initial encounter (principal); V43.62XA Car passenger injured in collision with other type car in traffic accident, initial encounter; Y93.89 Activity, other specified; Y92.410 Unspecified street and highway as the place of occurrence of the external cause
CPT/HCPCS: 36415; 80053; 81003; 81015; 83690; 85025; 87086; 99283-25; J7030

== ENCOUNTER 2017-12-01 08:10 | Inpatient (IN) | payer OTHER ==
[2017-12-01] MEDS ORDERED: LACTATED RINGERS SOLUTION 500 ML IV ONE (09:00)
[2017-12-01 09:40] LABS: HEMATOCRIT 34.5 % (32.4-45.2); HEMOGLOBIN 11.4 GM/dL (10.7-15.3); MEAN PLT VOLUME 7.8 fl (7.5-11.1); PLATELET COUNT 255 K/MM3 (134-434); RDW 15.1 % (11.6-15.6); WHITE BLOOD COUNT 11.5 K/mm3 (4.0-10.0)
[2017-12-01 10:05] LABS: ALBUMIN 2.8 g/dl (3.4-5.0); ALK PHOS 134 U/L (45-117); ANION GAP 13 MMOL/L (8-16); BILIRUBIN,DIRECT 0.4 mg/dL (0.0-0.2); BLOOD UREA NITROGEN 6 mg/dL (7-18); CALCIUM 7.9 mg/dL (8.5-10.1); CHLORIDE 105 mmol/L (98-107); CO2 23 mmol/L (21-32); CREATININE 0.4 mg/dL (0.55-1.3); GLUCOSE,RANDOM 132 mg/dL (74-106); SGOT/AST 30 U/L (15-37); SGPT/ALT 46 U/L (13-61); SODIUM 140 mmol/L (136-145); TOT PROT 6.8 g/dl (6.4-8.2)
[2017-12-01] MEDS: LACTATED RINGERS SOLUTION 500 ML IV SCH ×2 (10:15→11:30)
[2017-12-01] MEDS ORDERED: morphine SULFATE 4 MG/ML VIAL IVPB STA (10:55)
[2017-12-01] MEDS ORDERED: ACETAMINOPHEN INJECTION 100 ML IVPB ONE (10:57)
--- NOTE | 2017-12-01 11:04 | HP ---
Past Medical History - Admission Chief Complaint: abdominal pain History of Present Illness: 32yo [id number] 04/24/2017 EDC 01/29 SIUP at 31.5 weeks presents with c/o abdominal pain. Patient has been seen 3x with increasing and worsening pain. Pt seen initially on 11/28 with n/v/diarrhea. Yesterday abdominal pain started and has become worse. Pt seen yesterday, noted to have contractions given terb and sent home. She presents this morning with worsening abdominal pain. + nausea, no vomiting. no appetite. Last ate yesterday. No LOF, no vaginal bleeding. 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: Alzheimer's, CVA, Dementia, Migraine, Multiple Sclerosis, Peripheral Neuropathy, Parkinson's, Seizure, Syncope, TIA, Vertigo, Other Cardiovascular: No: AFIB, Aneurysm, Aortic Insufficiency, Aortic Stenosis, CAD, CHF, Deep Vein Thrombosis, HTN, Hyperlipdemia, LA, Mitral Insufficiency, Mitral Stenosis, Murmur, Pulmonary Hypertension, Other Pulmonary: No: Asthma, Bronchitis, Cancer, COPD, O2 Dependent, Pneumonia, Previously Intubated, Pulmonary Embolus, Pulmonary Fibrosis, Sleep Apnea, Other Gastrointestinal: No: Ascites, Cancer, Constipation, Crohn's Disease, Diverticulitis, Diverticulosis, Esophageal Varices, Gastritis, GERD, GI Bleed, Hemorrhoids, Hiatal Hernia, Inflamatory Bowel Disease, Irritable Bowel Disease, Pancreatitis, Peptic Ulcer Disease, Ulcerative Colitis, Other Hepatobiliary: No: Cirrhosis, Cholelithiasis, Cholecystitis, Choledocholithiasis , Hepatitis A, Hepatitis B, Hepatitis C, Other Renal/: No: Renal Failure, Renal Inusuff, BPH, Cancer, Hematuria, Hemodialysis , Neurogenic Bladder, Renal Calculi, UTI, Other Reproductive: No: Ectopic , Endometriosis, Fibroids, PID, Polycystic Ovary Syndrome, Postmenopausal, Other ...: 7 ...Para: 5 ...Term: 4 ...: 1 ...Spon : 0 ...Induced : 1 ...LMP: 04/24/17 ... Weeks Gestation by Dates: 31.5 ...EDC by Dates: 01/29/18 ...EDC by Sono: 01/29/18 Heme/Onc: No: Anemia, B12 Deficiency, Bleeding Disorder, Cancer, Current Chemotherapy, Current Radiation Therapy, Hemochromatosis, Hypercoaguable State, Myeloproliferative Synd, Sickle Cell Disease, Sickle Cell Trait, Thrombocytopenia, Other Infectious Disease: No: AIDS, C-Diff, Herpes Zoster, HIV, MRSA, STD's, Tuberculosis, VREF, Other Psych: No: Addictions, Anxiety, Bipolar, Depression, Panic, Psychosis, Schizophrenia, Other Rheumatology: No: Fibromyalgia, Gout, Lupus, Rheumatoid Arthritis, Sarcoidosis, Vasculitis, Other ENT: No: Allergic Rhinitis, Sinusitis, Other Endocrine: No: Queen's Disease, Tyro's Disease, Diabetes Insipidus, Diabetes Mellitus, Hyperparathyroidism, Hyperthyroidism, Hypothyroidism, Osteopenia, SIADH, Other - Past Surgical History Past Surgical History: Yes: Cholecystectomy Hx Myomectomy: No Hx Transabdominal Cerclage: No - Smoking History Smoking history: Never smoked Have you smoked in the past 12 months: No Aproximately how many cigarettes per day: 0 - Alcohol/Substance Use Hx Alcohol Use: No History of Substance Use: reports: None. denies: Cocaine, Heroin, Marijuana, Prescription, Tranquilizers - Social History ADL: Independent History of Recent Travel: No Home Medications - Allergies Allergies/Adverse Reactions: Allergies Allergy/AdvReac Type Severity Reaction Status Date / Time No Known Allergies Allergy Verified 12/01/17 11:26 - Home Medications Home Medications: Ambulatory Orders No122/Iron/Folic Acid [ Multi Tablet] 1 each PO DAILY 11/28/17 Family Disease History - Family Disease History Family History: Unremarkable Family Disease History: Other: Grandparent (migraines) Review of Systems - Review of Systems Constitutional: reports: Loss of Appetite Neck: denies: No Symptoms, Decreased ROM, Lumps, Pain on Movement, Stiffness, Swollen Glands, Tenderness, Other Cardiovascular: denies: No Symptoms, Chest Pain, Edema, Palpitations, Shortness of Breath, Other Respiratory: denies: No Symptoms, Cough, Exercise Intolerance, Hemoptysis, Orthopnea, PND, Snoring, SOB, SOB on Exertion, Wheezing, Other Gastrointestinal: reports: Abdominal Pain, Nausea Breasts: denies: No Symptoms Reported, See HPI, Breast Implants, Discharge from Nipple, Lumps, Pain, Skin Changes, Other Musculoskeletal: denies: No Symptoms, Back Pain, Crepitus, Decreased ROM, Extremity Pain, Joint Pain, Joint Swelling, Muscle Pain, Muscle Cramps, Muscle Weakness, Other Integumentary: denies: No Symptoms, Blister, Bruising, Change in Color, Eczema, Erythema, Incision, Lesions, Lump, Pallor, Pruritis, Rash, Wound, Other Neurological: denies: No Symptoms, Change in LOC, Change in Speech, Confusion, Dizziness, Headache, Incoordination, Numbness, Parasthesia, Pre-Existing Deficit , Seizure, Syncope, Tremors, Unsteady Gait, Weakness, Other Endocrine: denies: No Symptoms, Excessive Sweating, Flushing, Increased Hunger, Increased Thirst, Intolerance to Cold, Intolerance to Heat, Unexplained Weight Gain, Unexplained Weight Loss, Other Hematology/Lymphatic: denies: No Symptoms, Easily Bruised, Excessive Bleeding, Swollen Glands, Other Psychiatric: reports: No Symptoms Pain Intensity: 10 Physical Exam - Maternity Vital Signs: Vital Signs Temperature 98.4 F 12/01/17 09:00 Pulse Rate 86 12/01/17 09:00 Respiratory Rate 18 12/01/17 09:00 Blood Pressure 117/51 L 12/01/17 09:00 O2 Sat by Pulse Oximetry (%) Constitutional: Yes: Anxious, Mild Distress Eyes: Yes: WNL HENT: Yes: WNL Neck: Yes: WNL Cardiovascular: Yes: WNL - Abdominal Exam/OB Fundal Height: 32 Number of Fetuses: Single Presentation: Vertex Contractions: No Monitor Mode: External Heart Rate (range): 180 Category: II Accelerations: Uniform Decelerations: None - Vaginal Exam/OB Vaginal Bleediing: No Speculum Exam: No Dilatation (cm): 1 Effacement (%): long Amniotic Membrane Status: Intact - Physical Exam Musculoskeletal: Yes: WNL Extremities: Yes: WNL Edema: No Integumentary: Yes: WNL - Labs Lab Results: CBC, BMP 12/01/17 09:10 12/01/17 09:10 Hemorrhage Risk Assessment - Risk Factors Medium Risk Factors: Yes: None High Risk Factors: Yes: None Risk Score: 1 Risk Level: Medium Risk Problem List - Problems (1) Abdominal pain affecting Assessment/Plan: 32yo at 31.5 weeks gestation with acute abdomen, r/o morphine 4mg ivpb tylenol 1000mg ordered IV bolus 1000ml [facility] called; transfer request made and accepted by Dr. Jefferson Keene Code(s): O26.899 - OTH RELATED CONDITIONS, UNSPECIFIED TRIMESTER; R10.9 - UNSPECIFIED ABDOMINAL PAIN
[2017-12-01 11:46] VITALS: BMI 42.7
[2017-12-01 11:55] VITALS: PULSE 98; TEMP 100
[2017-12-01 12:10] VITALS: BP 114/60
[2017-12-01] MEDS ORDERED: ACETAMINOPHEN 1000 MG/100 ML VIAL (NON FORMULARY) IVPB ONE (13:00)
== END 2017-12-01 12:12 | disposition short-term general hospital (02) | DRG 566 ==
LOC: JDEL 08:10 → JLDR 10:55
PROVIDERS: ADMIT Obstetrics & Gynecology; ATTEND Obstetrics & Gynecology
DX: O26.893 Other specified pregnancy related conditions, third trimester (principal); R10.9 Unspecified abdominal pain
CPT/HCPCS: 36415; 59025; 76856-TC; 80053; 80076; 85027; J0131

== ENCOUNTER 2018-05-29 09:42 | Emergency (ER) | payer OTHER ==
[2018-05-29 09:51] VITALS: BMI 40.6
[2018-05-29 10:34] LABS: BASO % 0.6 % (0-2.0); HEMOGLOBIN 10.8 GM/dL (10.7-15.3); LYMPH % 29.4 % (8-40); MCH 30.3 pg (25.7-33.7); MCHC 33.7 g/dl (32.0-36.0); MEAN CELL VOLUME 89.9 fl (80-96); MEAN PLT VOLUME 7.5 fl (7.5-11.1); MONO % 4.3 % (3.8-10.2); NEUT % 62.7 % (42.8-82.8); PLATELET COUNT 270 K/MM3 (134-434); RBC 3.55 M/mm3 (3.60-5.2); RDW 14.2 % (11.6-15.6); WHITE BLOOD COUNT 6.1 K/mm3 (4.0-10.0)
[2018-05-29 10:49] LABS: INR 0.97 (0.83-1.09); PROTHROMBIN TIME (PATIENT) 11.4 SEC (9.7-13.0)
[2018-05-29] MEDS ORDERED: ACETAMINOPHEN 325 MG TABLET (FP) PO ONE (10:49)
[2018-05-29] MEDS ORDERED: ACETAMINOPHEN 325 MG TABLET (FP) ONE (10:50)
[2018-05-29 11:43] LABS: ALBUMIN 3.4 g/dl (3.4-5.0); ALK PHOS 92 U/L (45-117); ANION GAP 8 MMOL/L (8-16); BILIRUBIN,TOTAL 0.5 mg/dL (0.2-1); BLOOD UREA NITROGEN 10 mg/dL (7-18); CALCIUM 8.6 mg/dL (8.5-10.1); CHLORIDE 104 mmol/L (98-107); CO2 26 mmol/L (21-32); CREATININE 0.5 mg/dL (0.55-1.3); GLUCOSE,RANDOM 118 mg/dL (74-106); POTASSIUM 3.9 mmol/L (3.5-5.1); SGOT/AST 33 U/L (15-37); SGPT/ALT 40 U/L (13-61); SODIUM 138 mmol/L (136-145); TOT PROT 7.4 g/dl (6.4-8.2)
--- NOTE | 2018-05-29 12:46 | PDOC ---
Documentation entered by Rehana Swenson SCRIBE, acting as scribe for Jenna Craven MD. Jenna Craven MD: This documentation has been prepared by the Messi cardoza Amanda, SCRIBE, under my direction and personally reviewed by me in its entirety. I confirm that the documentation accurately reflects all work, treatment, procedures, and medical decision making performed by me. History of Present Illness - General Chief Complaint: Vaginal Bleeding Stated Complaint: VAGINAL BLEEDING, elective Sunday Time Seen by Provider: 05/29/18 09:59 History Source: Patient Exam Limitations: No Limitations - History of Present Illness Initial Comments: 05/29/18 10:29 The patient is a 33 year old female, , with no significant past medical history, who presents to the ED with abdominal pain and heavy vaginal bleeding s /p elective on Sunday. [facility] 8.5 weeks . She states she was given on pill in the office and informed to take the additional 4 pills whenshe was comfortable at home. She states she took the medication before bed on Sunday and woke up at midnight with heavy bleeding which subsided by 3AM. She states she was soaking pads about every 2 hours since Sunday, however, woke up at 6AM today with increased pain and bleeding. She states she has soaked about 6-8 pads between 6AM and 10AM this morning. She also reports some momentary dizziness this morning, but denies dizziness now. She states she is planning to have the nexplanon placed, however, missed her appointment because her baby was sick at home. She denies CP, SOB, palpitations. She denies nausea, vomiting, diarrhea, constipation. She denies dysuria. She denies any other complaints. Surgical Hx: appendectomy 6 months ago Social Hx: Denies toxic habits Allergies: NKDA Past History - Past Medical History Allergies/Adverse Reactions: Allergies Allergy/AdvReac Type Severity Reaction Status Date / Time No Known Allergies Allergy Verified 05/29/18 09:50 Home Medications: Ambulatory Orders Acetaminophen W/ Codeine #3 [Tylenol # 3 -] 1 tab PO BID PRN #6 tablet MDD 2 Asthma: No Cancer: No Cardiac Disorders: No COPD: No Diabetes: No HTN: No Seizures: No Thyroid Disease: No - Surgical History Appendectomy: Yes Cholecystectomy: Yes - Reproductive History (#): 7 Para: 6 Therapeutic (s) & number: Yes (1) Spontaneous : 0 - Immunization History Immunization Up to Date: Yes - Suicide/Smoking/Psychosocial Hx Smoking Status: No Smoking History: Never smoked Have you smoked in the past 12 months: No Number of Cigarettes Smoked Daily: 0 Information on smoking cessation initiated: No Hx Alcohol Use: No Drug/Substance Use Hx: No Substance Use Type: None Hx Substance Use Treatment: No Review of Systems - Review of Systems Able to Perform ROS?: Yes Comments:: 05/29/18 10:35 CONSTITUTIONAL: Absent: fever, no chills, no fatigue EYES: Absent: visual changes ENT: Absent: ear pain, no sore throat CARDIOVASCULAR: Absent: chest pain, no palpitations RESPIRATORY: Absent: cough, no SOB GASTROINTESTINAL: (+) lower abdominal pain. Absent: no nausea, no vomiting, no constipation, no diarrhea GENITOURINARY: (+) heacy vaginal bleeding. Absent: dysuria, no frequency, no hematuria MUSCULOSKELETAL: Absent: back pain, no arthralgia, no myalgia SKIN: Absent: rash NEURO: Absent: headache *Physical Exam - Vital Signs Last Vital Signs Temp Pulse Resp BP Pulse Ox 98.5 F 71 18 129/96 99 05/29/18 09:46 05/29/18 09:46 05/29/18 09:46 05/29/18 09:46 05/29/18 09:46 - Physical Exam Comments: 05/29/18 10:35 GENERAL: The patient is in no acute distress. HEAD: Normal with no signs of trauma. EYES: PERRLA, EOMI, sclera anicteric, conjunctiva clear. ENT: Ears normal, nares patent, oropharynx clear without exudates. Moist mucous membranes. NECK: Normal range of motion, supple without lymphadenopathy, JVD, or masses. LUNGS: Breath sounds equal, clear to auscultation bilaterally. No wheezes, and no crackles. HEART:Regular rate and rhythm, normal S1 and S2 without murmur, rub or gallop. ABDOMEN: (+) lower abdominal tenderness. Soft, normoactive bowel sounds. No guarding, no rebound. No masses palpable. PELVIC: (+) vaginal bleeding noted on external examination. normal external genitalia. pad soaked in blood. EXTREMITIES: Normal range of motion, no edema. No clubbing or cyanosis. No erythema, or tenderness. NEUROLOGICAL: Cranial nerves II through XII grossly intact. Normal speech. No focal neurological deficits. MUSCULOSKELETAL: Back non-tender to palpation, no CVA tenderness SKIN: Warm, Dry, normal turgor, no rashes or lesions noted. ED Treatment Course - LABORATORY CBC & Chemistry Diagram: 05/29/18 10:21 05/29/18 10:21 - ADDITIONAL ORDERS Additional order review: Laboratory Results 05/29/18 10:21 PT with INR 11.40 INR 0.97 05/29/18 10:21 RBC 3.55 L MCV 89.9 MCHC 33.7 RDW 14.2 MPV 7.5 Neutrophils % 62.7 D Lymphocytes % 29.4 D Monocytes % 4.3 Eosinophils % 3.0 D Basophils % 0.6 - RADIOLOGY Radiology Studies Ordered: Category Date Time Status TRANSVAGINAL ULTRASOUND US [US] Stat Ultrasound 05/29/18 10:01 Ordered - Medications Given in the ED: ED Medications Discontinued Medications Generic Name Dose Route Start Last Admin Trade Name Freq PRN Reason Stop Dose Admin Acetaminophen 975 mg 05/29/18 10:49 05/29/18 10:52 Tylenol - PO 05/29/18 10:50 975 mg ONCE ONE Administration Medical Decision Making - Medical Decision Making 05/29/18 10:57 33 yo F s/p medical [facility] of [facility]18 Presenting with vaginal bleeding which is heavy, she has been saturating multiple pads, she estimates 5 or 6 since this morning at 6am No lightheadedness No dizziness No chest pain 05/29/18 10:58 Laboratory Tests 12/01/17 05/29/18 05/29/18 09:10 10:21 10:21 WBC 11.5 H 6.1 Hgb 11.4 10.8 Hct 34.5 32.0 L Plt Count 255 270 PT with INR 11.40 TVUS 05/29/18 11:53 Laboratory Tests 05/29/18 10:21 BUN 10 Creatinine 0.5 L Beta HCG, Quant 2682.1 Laboratory Tests 05/29/18 05/29/18 10:21 10:21 BUN 10 Creatinine 0.5 L Beta HCG, Quant 2682.1 Blood Type O POSITIVE US: thickened endometrium Will contact OB Will plan to discharge to home Follow up with OB 05/29/18 12:[address] Goss She states this is to be expected Pt [facility] as an outpatient Clinical Impression: vaginal bleeding s/p Medical Termination, initial presentation *DC/Admit/Observation/Transfer Diagnosis at time of Disposition: Vaginal bleeding - Discharge Dispostion Disposition: HOME Condition at time of disposition: Stable Decision to Admit order: No - Referrals Referrals: Abigail Sorensen MD [Staff Physician] - Rafael Burroughs MD [Staff Physician] - Winifred Goss MD [Staff Physician] - - Patient Instructions Printed Discharge Instructions: DI for Vaginal Bleeding, DI for Therapeutic : Medical Additional Instructions: Ms Adkins Thank you for coming in to the ER today You can take Motrin 600mg by mouth every 8 hours as needed for pain You can take Tylenol #3 for more severe pain (no driving or operating heavy machinery, do not mix with alcohol) Please monitor your bleeding, if you are bleeding heavily and are lightheaded or having chest pain, please return to the ER to be assessed It is a good idea for you to establish care with an technology consultant Please monitor yourself for fevers, chills, malodorous discharge If you notice this, please return to the ER to see us or see the technology consultant - Post Discharge Activity Forms/Work/School Notes: Back to Work - Attestations Scribe Attestion: 05/29/18 10:38 Documentation prepared by Rehana Swenson, acting as medical research associate for Jenna Craven MD
[2018-05-29 13:08] VITALS: BP 126/77; PULSE 82; TEMP 97.8
== END 2018-05-29 13:08 | disposition home or self-care (01) ==
LOC: JER 09:42
DX: N93.9 Abnormal uterine and vaginal bleeding, unspecified (principal)
CPT/HCPCS: 36415; 76830-TC; 80053; 84702; 85025; 85610; 86850; 86900; 86901; 99283-25

== ENCOUNTER 2018-09-29 21:32 | Emergency (ER) | payer OTHER ==
[2018-09-29 22:01] VITALS: BMI 37.8
--- NOTE | 2018-09-29 22:48 | PDOC ---
History of Present Illness - General Chief Complaint: Chest Pain Stated Complaint: CHEST PAIN Time Seen by Provider: 09/29/18 22:46 - History of Present Illness Initial Comments: 09/29/18 23:02 33 year old female, , with no significant past medical history who presents with L sided chest pain radiating to L arm since 9pm yesterday. She describes her L arm symptom as heaviness. She took an ASA and Aleve with minimal relief. She reports her pain is reproducible on palpation of the chest wall. ROS GENERAL/CONSTITUTIONAL: No fever or chills. No weakness. HEAD, EYES, EARS, NOSE AND THROAT: No change in vision. No ear pain or discharge. No sore throat. CARDIOVASCULAR: No chest pain or shortness of breath RESPIRATORY: No cough, wheezing, or hemoptysis. GASTROINTESTINAL: No nausea, vomiting, diarrhea or constipation. GENITOURINARY: No dysuria, frequency, or change in urination. MUSCULOSKELETAL: No joint or muscle swelling or pain. No neck or back pain. NEUROLOGIC: No headache, vertigo, loss of consciousness, or change in strength/ sensation. PE GENERAL: Awake, alert, and fully oriented, in no acute distress HEAD: No signs of trauma, normocephalic, atraumatic EYES: EOMI, sclera anicteric, conjunctiva clear ENT: oropharynx clear without exudates. Moist mucosa NECK: Normal ROM, supple LUNGS: No distress, speaks full sentences, clear to auscultation bilaterally HEART: Regular rate and rhythm, normal S1 and S2, no murmurs, rubs or gallops, peripheral pulses normal and equal bilaterally. ABDOMEN: Soft, nontender, normoactive bowel sounds. No guarding, no rebound. No masses EXTREMITIES : Normal inspection, Normal range of motion, no edema. No clubbing or cyanosis. NEUROLOGICAL: Cranial nerves II through XII grossly intact. Normal speech, normal gait, no focal sensorimotor deficits SKIN: Warm, Dry, normal turgor, no rashes or lesions noted DDX including but not limited to: msk vs gerd vs pna/pleuritis r/o acs W/U: - cbc, cmp ,trop, ekg, cxr ED course: EKG:T wave inversion V1 and V2, normal sinus 69bpm labs wnl, negative trop Patient given PCP referral return precuations and dischareg instructions Fatmata Koppula, PGY2 Emergency Medicine Past History - Past Medical History Allergies/Adverse Reactions: Allergies Allergy/AdvReac Type Severity Reaction Status Date / Time No Known Allergies Allergy Verified 09/29/18 21:56 Home Medications: Ambulatory Orders NK [No Known Home Medication] 09/29/18 Asthma: No Cancer: No Cardiac Disorders: No COPD: No Diabetes: No HTN: No Seizures: No Thyroid Disease: No - Surgical History Appendectomy: Yes Cholecystectomy: Yes - Reproductive History (#): 7 Para: 6 Therapeutic (s) & number: Yes (1) Spontaneous : 0 - Immunization History Immunization Up to Date: Yes - Suicide/Smoking/Psychosocial Hx Smoking Status: No Smoking History: Never smoked Have you smoked in the past 12 months: No Number of Cigarettes Smoked Daily: 0 Hx Alcohol Use: No Drug/Substance Use Hx: No Substance Use Type: None Hx Substance Use Treatment: No *Physical Exam - Vital Signs Last Vital Signs Temp Pulse Resp BP Pulse Ox 98.4 F 71 18 119/56 L 100 09/29/18 21:57 09/29/18 21:57 09/29/18 21:57 09/29/18 21:57 09/29/18 21:57 ED Treatment Course - LABORATORY CBC & Chemistry Diagram: 09/29/18 23:15 09/29/18 23:15 *DC/Admit/Observation/Transfer Diagnosis at time of Disposition: Atypical chest pain - Discharge Dispostion Disposition: HOME Condition at time of disposition: Stable Decision to Admit order: No - Referrals Referrals: [facility] [place] [Provider Group] - Patient Instructions Printed Discharge Instructions: DI for Atypical Chest Pain Additional Instructions: You were seen in the ED for complaints of chest pain. Your labwork and imaging was unremarkable. Take Tylenol or Motrin for your pain. Please follow up with your Primary Doctor within the last 1 week. Return to the ED immediately if you experience worsening chest pain, shortness of breath, sweating or nausea. - Post Discharge Activity
[2018-09-29 23:22] LABS: BASO % 0.7 % (0-2.0); EOS % 1.8 % (0-4.5); HEMATOCRIT 33.8 % (32.4-45.2); HEMOGLOBIN 11.3 GM/dL (10.7-15.3); LYMPH % 32.2 % (8-40); MCH 29.1 pg (25.7-33.7); MCHC 33.4 g/dl (32.0-36.0); MEAN CELL VOLUME 87.3 fl (80-96); MONO % 7.6 % (3.8-10.2); NEUT % 57.7 % (42.8-82.8); PLATELET COUNT 267 K/MM3 (134-434); RBC 3.87 M/mm3 (3.60-5.2); RDW 16.8 % (11.6-15.6); WHITE BLOOD COUNT 5.8 K/mm3 (4.0-10.0)
[2018-09-29 23:29] VITALS: BP 118/78; PULSE 67; TEMP 99
[2018-09-29 23:45] LABS: ALBUMIN 3.7 g/dl (3.4-5.0); BILIRUBIN,TOTAL 0.4 mg/dL (0.2-1); BLOOD UREA NITROGEN 12.1 mg/dL (7-18); CALCIUM 8.3 mg/dL (8.5-10.1); CREATININE 0.7 mg/dL (0.55-1.3); TOT PROT 7.1 g/dl (6.4-8.2)
--- NOTE | 2018-09-29 23:58 | PDOC ---
Documentation entered by Ermelinda Cabrera SCRIBE, acting as scribe for Enid Jones MD. Enid Jones MD: This documentation has been prepared by the [email or web address] Lincy, SCRIBE, under my direction and personally reviewed by me in its entirety. I confirm that the documentation accurately reflects all work, treatment, procedures, and medical decision making performed by me. Attending Attestation - Resident Resident Name: Fatmata Kennedy - ED Attending Attestation I have performed the following: I have examined & evaluated the patient, The case was reviewed & discussed with the resident, I agree w/resident's findings & plan - HPI HPI: 09/29/18 23:18 The patient is a 33-year-old female with no reported past medical history presents to the emergency department with chest pain and left arm pain. The patient reports an onset of left-sided chest pain at 9:00 pm yesterday, which radiated to her left arm. The patient reports heaviness and numbness to her left hand, denies weakness. No relief with aleve or ASA. Denies fever, chills, shortness of breath, nausea, vomiting, lightheadedness, diaphoresis. Allergies: NKDA - Physicial Exam PE: 09/29/18 23:18 GENERAL: +obese. Awake, alert, and fully oriented, in no acute distress HEAD: No signs of trauma EYES: PERRLA, EOMI, sclera anicteric, conjunctiva clear ENT: Auricles normal inspection, hearing grossly normal, nares patent, oropharynx clear without exudates. Moist mucosa NECK: Normal ROM, supple, no lymphadenopathy, JVD, or masses LUNGS: Breath sounds equal, clear to auscultation bilaterally. No wheezes, and no crackles HEART: Regular rate and rhythm, normal S1 and S2, no murmurs, rubs or gallops ABDOMEN: Soft, nontender. No guarding, no rebound. No masses EXTREMITIES: Normal range of motion, no edema. No clubbing or cyanosis. No cords, erythema, or tenderness NEUROLOGICAL: Cranial nerves II through XII grossly intact. Normal speech, normal gait SKIN: Warm, Dry, normal turgor, no rashes or lesions noted. - Medical Decision Making 09/29/18 23:03 Pt comes with left arm pain since 9p last night. Pt comes because her grandpa made her nervous because he mentioned that this can be a heart attack. 09/29/18 23:57 Labs normal; EKG normal; pt stable to go home.
--- NOTE | 2018-09-30 12:56 | EKG ---
Test Reason : Blood Pressure : / mmHG Vent. Rate : 069 BPM Atrial Rate : 069 BPM P-R Int : 162 ms QRS Dur : 094 ms QT Int : 430 ms P-R-T Axes : 036 046 034 degrees QTc Int : 460 ms NORMAL SINUS RHYTHM NORMAL ECG WHEN COMPARED WITH ECG OF 18-SEP-2012 22:45, NO SIGNIFICANT CHANGE WAS FOUND Confirmed by DANIEL SMITH MD ([id number]) on 09/30/2018 12:55:52 PM Referred By: Confirmed By:DANIEL SMITH MD
== END 2018-09-30 00:05 | disposition home or self-care (01) ==
LOC: JER 21:32
DX: R07.89 Other chest pain (principal)
CPT/HCPCS: 36415; 71046-TC-FY; 80053; 82550; 84484; 84703; 85025; 93005; 93010; 99284-25

== ENCOUNTER 2019-02-09 00:02 | Observation (INO) | payer OTHER ==
[2019-02-09] MEDS ORDERED: SODIUM CHLORIDE 1,000 ML IV SCH ×2 (00:30→03:15)
--- NOTE | 2019-02-09 00:34 | PDOC ---
Attending Attestation - Resident Resident Name: Stepan Forrester - HPI HPI: 02/09/19 01:37 Pt presents to the ED complaining of the acute onset of headache and L sided facial droop that started 20 min prior to admission. Patient denies other neurologic symptoms. History of headaches in the past without neurologic symptoms. 02/09/19 01:41 - Physicial Exam PE: 02/09/19 01:43 Agree with resident exam. Patient is alert and oriented and tearful. CV: rrr no m/r/g Pulm: CTA b/l neuro: aao x3 CN: + L sided facial droop that spares the forehead. Otherwise neurologically intact. - Medical Decision Making 02/09/19 01:44 Pt presents to the ED complaining of the acute onset of headache and facial droop that spares the forehead. Symptoms are most consistent with complex migraine, but given her persistent neurologic symptoms, patient will be admitted for MRI for rule out CVA. case discussed with Dr. Arizmendi who agrees with the above plan 02/09/19 02:01
--- NOTE | 2019-02-09 00:55 | PDOC ---
History of Present Illness - General Chief Complaint: CVA/TIA Stated Complaint: HEADACHE/ FACIAL DROOP Time Seen by Provider: 02/09/19 00:34 - History of Present Illness Initial Comments: The pt is a 34F w/ no reported PMH who presents for evaluation of 1 hour of left lower facial droop and ALVAREZ. The ALVAREZ is b/l, occipital, achy/throbbing, non- radiating, gradual onset for approximately 2 hours that she has not tried taking anything for. Endorses 1 hour of left facial droop. Denies other sensation changes or weakness, fevers, chest pain, trouble breathing, vision changes, hearing changes, changes in taste, dysuria, hematuria. 02/09/19 00:50 tPA Exclusion checklist 3-4.5h - Time Elapsed Date last known well: 02/08/19 Time last known well: 22:00 Elaspsed time: Day(s) and 9 Hour(s) and 20 Minutes - Thrombolytic Therapy Candidate Is patient eligible for thrombolytic therapy: No - Ineligibility reason(s) Reasons No tPA given: See reason(s) noted above (Pt w/ minor symptoms and strongly suspect complex migraine which was discussed w/ Dr. Arizmendi) NIH Stroke Scale - Last Known Well Date/Time & Onset Date Last Known Well: 02/08/19 Time Last Known Well: 22:00 - Initial Evaluation Level of consciousness: Alert Ask patient the month and their age: Answers both correctly Ask patient to open & close eyes; make fist and let go: Obeys both correctly Best gaze (horizontal eye movement): Normal Visual field testing: No visual field loss Facial paresis (Show teeth/raise eyebrows/close eyes tight): Partial paralysis ( total or near paralysis of lower face) (Left lower facial paralysis) Motor Function: Left Arm: Normal Motor Function: Right Arm: Normal (extends arm 90 (or 45) degrees for 10 seconds without drift Motor Function: Left Leg: Normal (extends leg 30 degrees for 5 seconds without drift) Motor Function: Right Leg: Normal (extends leg 30 degrees for 5 seconds without drift) Limb Ataxia: No ataxia Sensory(Use pinprick test arms,legs,trunk,face/side to side): Normal Best language (Describe picture, name items, read sentences): No Aphasia Dysarthria (read several words): Normal articulation Extinction and Inattention: No abnormality - Total Score NIH Stroke Scale Score: 2 Past History - Past Medical History Allergies/Adverse Reactions: Allergies Allergy/AdvReac Type Severity Reaction Status Date / Time No Known Allergies Allergy Verified 02/09/19 00:13 Home Medications: Ambulatory Orders NK [No Known Home Medication] 09/29/18 Asthma: No Cancer: No Cardiac Disorders: No COPD: No Diabetes: No HTN: No Seizures: No Thyroid Disease: No Other medical history: Pt denies - Surgical History Appendectomy: Yes Cholecystectomy: Yes - Reproductive History (#): 7 Para: 6 Therapeutic (s) & number: Yes (1) Spontaneous : 0 - Immunization History Immunization Up to Date: Yes - Psycho Social/Smoking Cessation Hx Smoking Status: No Smoking History: Never smoked Have you smoked in the past 12 months: No Number of Cigarettes Smoked Daily: 0 Information on smoking cessation initiated: No Hx Alcohol Use: No Drug/Substance Use Hx: No Substance Use Type: None Hx Substance Use Treatment: No Review of Systems - Review of Systems Able to Perform ROS?: Yes Comments:: GENERAL/CONSTITUTIONAL: No fever or chills HEAD, EYES, EARS, NOSE AND THROAT: No change in vision. No change in hearing. No sore throat CARDIOVASCULAR: No chest pain or shortness of breath RESPIRATORY: Denies cough, hemoptysis GASTROINTESTINAL: No nausea, vomiting, diarrhea or constipation GENITOURINARY: No dysuria, frequency, or change in urination MUSCULOSKELETAL: No joint or muscle swelling or pain. No neck or back pain SKIN: No rash NEUROLOGIC: No vertigo, loss of consciousness ENDOCRINE: No increased thirst. No abnormal weight change HEMATOLOGIC/LYMPHATIC: No anemia, easy bleeding, or history of blood clots ALLERGIC/IMMUNOLOGIC: No hives or skin allergy 02/09/19 01:51 Is the patient limited [place] proficient: No *Physical Exam - Vital Signs Last Vital Signs Temp Pulse Resp BP Pulse Ox 98.0 F 78 18 152/74 98 02/09/19 00:15 02/09/19 00:15 02/09/19 00:15 02/09/19 00:15 02/09/19 00:15 - Physical Exam GENERAL: Awake, alert, and oriented to person/place/time, in no acute distress HEAD: No signs of trauma, normocephalic, atraumatic EYES: PERRLA, EOMI, sclera anicteric, conjunctiva clear ENT: Hearing grossly normal, nares patent, oropharynx clear without exudates. Moist mucosa LUNGS: No distress, speaks in full sentences, clear to auscultation bilaterally HEART: Regular rate and rhythm, normal S1 and S2, no murmurs appreciated, peripheral pulses normal and equal bilaterally ABDOMEN: Soft, nontender, normoactive bowel sounds. No guarding, no rebound EXTREMITIES: Normal inspection, Normal range of motion, no edema. No clubbing or cyanosis NEUROLOGICAL: Left lower facial droop, no sensation deficits over V1-3, no deficit with word finding, BUE/BLE with strength and sensation intact SKIN: Warm, Dry 02/09/19 01:51 ED Treatment Course - LABORATORY CBC & Chemistry Diagram: 02/09/19 04:30 02/09/19 05:27 - RADIOLOGY Radiograph Interpretation: THIS IS A PRELIMINARY REPORT FROM [facility]NA[facility] DATE OF SERVICE: 2019-02-09 00:39:30 EXAM: CT brain without contrast FINDINGS: The clinically suspected infarct is not detectable on CT at this time. No hemorrhage. No mass. No shift or herniation. Osseous structures are intact. 02/09/19 05:53 Medical Decision Making - Medical Decision Making The pt is a 34F w/ no reported PMH who presents for evaluation of 1 hour of left lower facial droop and ALVAREZ. ED Course NIHSS 2 Likely 2/2 complex migraine as discussed with Dr. Arizmendi -Plan for admission for MRI CT read initially negative Pt given Tylenol, IVF, and Reglan for symptomatic relief 02/09/19 02:00 No leukocytosis No anemia Lytes unremarkable No KENDAL LFTs wnl Trop I neg TSH mildly elevated Preg neg Pt signed out to [facility] Admitting 02/09/19 05:53 Discharge - Discharge Information Problems reviewed: Yes Clinical Impression/Diagnosis: Facial droop Headache Qualifiers: Headache type: unspecified Headache chronicity pattern: acute headache Intractability: not intractable Qualified Code(s): R51 - Headache Condition: Good - Admission Yes - Follow up/Referral - Patient Discharge Instructions - Post Discharge Activity
[2019-02-09] MEDS ORDERED: ACETAMINOPHEN 1000 MG/100 ML VIAL (NON FORMULARY) IVPB ONE (00:56)
[2019-02-09] MEDS ORDERED: ACETAMINOPHEN INJECTION 100 ML IVPB ONE ×2 (00:57→01:31)
[2019-02-09 01:02] LABS: BASO % 0.7 % (0-2.0); EOS % 2.3 % (0-4.5); HEMATOCRIT 35.3 % (32.4-45.2); HEMOGLOBIN 11.8 GM/dL (10.7-15.3); LYMPH % 27.9 % (8-40); MCH 29.8 pg (25.7-33.7); MCHC 33.4 g/dl (32.0-36.0); MEAN CELL VOLUME 89.2 fl (80-96); MEAN PLT VOLUME 7.9 fl (7.5-11.1); MONO % 6.3 % (3.8-10.2); NEUT % 62.8 % (42.8-82.8); PLATELET COUNT 288 K/MM3 (134-434); RBC 3.96 M/mm3 (3.60-5.2); RDW 14.6 % (11.6-15.6); WHITE BLOOD COUNT 8.1 K/mm3 (4.0-10.0)
[2019-02-09 01:12] LABS: INR 0.92 (0.83-1.09); PROTHROMBIN TIME (PATIENT) 10.9 SEC (9.7-13.0)
[2019-02-09 01:15] LABS: ACTIVATED PTT 32.6 SECONDS (25.2-36.5)
[2019-02-09 01:25] LABS: ALBUMIN 3.6 g/dl (3.4-5.0); ALK PHOS 112 U/L (45-117); ANION GAP 7 MMOL/L (8-16); BILIRUBIN,TOTAL 0.3 mg/dL (0.2-1); BLOOD UREA NITROGEN 11.3 mg/dL (7-18); CALCIUM 8.3 mg/dL (8.5-10.1); CHLORIDE 106 mmol/L (98-107); CHOLESTEROL 181 mg/dL (50-200); CO2 26 mmol/L (21-32); CREATININE 0.7 mg/dL (0.55-1.3); GLUCOSE,RANDOM 162 mg/dL (74-106); HDL CHOLESTEROL 73 mg/dL (40-60); LDL CHOLESTEROL (ONLY SJRH) 90 mg/dL (5-100); MAGNESIUM 2.1 mg/dL (1.8-2.4); PHOSPHOROUS 3.6 mg/dL (2.5-4.9); POTASSIUM 3.8 mmol/L (3.5-5.1); SGOT/AST 20 U/L (15-37); SGPT/ALT 36 U/L (13-61); SODIUM 139 mmol/L (136-145); TOT PROT 7.6 g/dl (6.4-8.2); TRIGLYCERIDES 191 mg/dL (0-150)
[2019-02-09] MEDS ORDERED: METOCLOPRAMIDE HCL INJECTION 10 MG/2 ML VIAL IVPUSH ONE (01:40)
--- NOTE | 2019-02-09 01:59 | PN ---
Teaching Attending Note Name of Resident: Mateo Tucker ATTENDING PHYSICIAN STATEMENT I saw and evaluated the patient. I reviewed the resident's note and discussed the case with the resident. I agree with the resident's findings and plan as documented. SUBJECTIVE: Patient is a 34 year old woman with PMH Cholecystectomy who presents for evaluation of 1 hour of headache and left lower facial droop. Headache is bilateral, occipital, achy/throbbing, non-radiating, of gradual onset for approximately 2 hours. She has not tried taking anything for the headache. Has had 1 hour of left facial droop. Denies other sensation changes or weakness, fevers, chest pain, SOB, vision changes, hearing changes, changes in taste, dysuria, hematuria or diarrhea. No recent travel or sick contacts. Denies tobacco, alcohol or illicit drug use. Has FH of migraines. She is , works as a medical office receptionist and is . LMP was 01/27/2019. OBJECTIVE: Alert Vital Signs Period Temp Pulse Resp BP Sys/[place] Pulse Ox Last 24 Hr 98.0 F 78 18 152/74 98 HEENT: No Jaundice, eye redness or discharge, PERRLA, EOMI. Right facial droop. Normocephalic, atraumatic. External ears are normal and hearing is grossly intact. No nasal discharge. Neck: Supple, nontender. No palpable adenopathy or thyromegaly. No JVD Chest: Good effort. Clear to auscultation and percussion. Heart: Regular. No S3, rub or murmur Abdomen: Not distended, soft, nontender and no HSM. No rebound or guarding. Normal bowel sounds. Ext: Peripheral pulses intact. No leg edema. Skin: Warm and dry. No petechiae, rash or ecchymosis. Neuro: Alert. Oriented x3. CN 2-12 grossly intact. Sensation grossly intact in all four extremities and DTR are symmetric. Psych: Appropriate mood and affect. Good insight. Current Medications Generic Name Dose Route Start Last Admin Trade Name Freq PRN Reason Stop Dose Admin Sodium Chloride 1,000 mls @ 42 mls/hr 02/09/19 00:30 02/09/19 00:51 Normal Saline - IV 42 mls/hr ASDIR MOISÉS Administration Home Medications Medication Instructions Recorded NK [No Known Home Medication] 09/29/18 Abnormal Lab Results 02/09/19 02/09/19 00:49 00:49 Anion Gap 7 L Random Glucose 162 H Calcium 8.3 L Triglycerides 191 H HDL Cholesterol 73 H ASSESSMENT AND PLAN: 1. TIA - No acute intracranial abnormality on head CT. CXR shows cardiomegaly. NIHSS score in the ER was 2. Patient not a candidate for tPA. ER staff consulted the neurologist who feels that complex migraine is the likely diagnosis. EKG shws NSR with prolonged QTc. Urinalysis is pending. Will treat with tylenol PRN for pain. Get brain MRI, ECHO, carotid doppler, PT consult, do speech and swallow evaluation and give statin and ASA. Will monitor BP closely since she may have undiagnosed hypertension. Get HbA1c and repeat serum calcium - investigate hypocalcemia if it persists. 2. Obesity Counseled on the risks associated with obesity. Will provide patient all the necessary assistance, counseling and positive reinforcement to facilitate weight loss. Consult filler shredder machine. 3. DVT prophylaxis - Lovenox 40 mg SQ q 24 hours. 4. Advance directives - Full code
[2019-02-09] MEDS ORDERED: METOCLOPRAMIDE HCL INJECTION 10 MG/2 ML VIAL ONE (02:17)
[2019-02-09] MEDS ORDERED: ASPIRIN 325 MG ENTERIC COATED TABLET (FP) PO ONE (03:16)
--- NOTE | 2019-02-09 03:20 | HP ---
CHIEF COMPLAINT: headache; right sided facial droop PCP: HISTORY OF PRESENT ILLNESS: Patient is a 34 year old female with history of obesity, presents with complaint of headache with associated right sided facial drooping. Patient states that headache has been ongoing for approx past two months. Described as intermittent, occurring every two days, and describes hair-pulling sensation. She has attempted taking Acetaminphen, and Aspirin for the headache which has not been palliative. This evening approx 11PM she noticed a right sided facial drooping as she was sitting down and watching TV. She denies any trauma, fall, or loss of consciousness. Denies prior occurrence of these symptoms. Denies prior physician evaluation for these symptoms. ER course was notable for: (1) NIHSS 2; NO TPA was given (2) Ofirmev (3) Recent Travel: denies PAST MEDICAL HISTORY: obesity PAST SURGICAL HISTORY: appendectomy, cholecystectomy Social History: Lives with her children, and . Works as entry level receptionist. Independent in activities of daily living. Smoking: Denies smoking cigarettes Alcohol: Denies alcohol consumption Drugs: Denies illicit drug use Allergies No Known Allergies Allergy (Verified 02/09/19 00:13) HOME MEDICATIONS: Home Medications Medication Instructions Recorded NK [No Known Home Medication] 09/29/18 REVIEW OF SYSTEMS 10 system review of systems performed; As per HPI PHYSICAL EXAMINATION Vital Signs - 24 hr 02/09/19 00:15 Temperature 98.0 F Pulse Rate 78 Respiratory 18 Rate Blood Pressure 152/74 O2 Sat by Pulse 98 Oximetry (%) GENERAL: Awake, alert, and fully oriented, in no acute distress. HEAD: Normal with no signs of trauma. EYES: Pupils equal, round and reactive to light, extraocular movements intact, sclera anicteric, conjunctiva clear. EARS, NOSE, THROAT: Oropharynx clear without exudates. Moist mucous membranes. NECK: Normal range of motion, supple without lymphadenopathy, JVD, or masses. LUNGS: Breath sounds equal, clear to auscultation bilaterally. No wheezes, and no crackles. No accessory muscle use. HEART: Regular rate and rhythm, normal S1 and S2 without murmur, rub or gallop. ABDOMEN: Soft, nontender, not distended, normoactive bowel sounds, no guarding, no rebound, no masses. No hepatomegaly or splenomegaly. MUSCULOSKELETAL: Normal range of motion at all joints. No bony deformities or tenderness. No CVA tenderness. UPPER EXTREMITIES: 2+ pulses, warm, well-perfused. No cyanosis. No clubbing. No peripheral edema. LOWER EXTREMITIES: 2+ pulses, warm, well-perfused. No calf tenderness. No peripheral edema. NEUROLOGICAL: Right sided slight facial droop at V3 distribution. Otherwise, Cranial nerves II-IV, - XII grossly intact. Normal speech. Normal gait. Strength 5/5 bilateral upper and lower extremities in flexion, extension. Sensation grossly intact bilaterally. PSYCHIATRIC: Cooperative. Good eye contact. Appropriate mood and affect. SKIN: Warm, dry, normal turgor, no rashes or lesions noted, normal capillary refill. Laboratory Results - last 24 hr 02/09/19 02/09/19 02/09/19 00:49 00:49 00:49 WBC RBC Hgb Hct MCV MCH MCHC RDW Plt Count MPV Absolute Neuts (auto) Neutrophils % Lymphocytes % Monocytes % Eosinophils % Basophils % Nucleated RBC % PT with INR 10.90 INR 0.92 PTT (Actin FS) 32.6 Sodium Potassium Chloride Carbon Dioxide Anion Gap BUN Creatinine Est GFR (CKD-EPI)AfAm Est GFR (CKD-EPI)NonAf Random Glucose Calcium Phosphorus Magnesium Total Bilirubin AST ALT Alkaline Phosphatase Creatine Kinase Troponin I Total Protein Albumin Triglycerides 191 H Cholesterol 181 Total LDL Cholesterol 90 HDL Cholesterol 73 H Serum , Qual Blood Type O POSITIVE Antibody Screen Negative 02/09/19 02/09/19 02/09/19 00:49 00:49 00:49 WBC RBC Hgb Hct MCV MCH MCHC RDW Plt Count MPV Absolute Neuts (auto) Neutrophils % Lymphocytes % Monocytes % Eosinophils % Basophils % Nucleated RBC % PT with INR INR PTT (Actin FS) Sodium 139 Potassium 3.8 Chloride 106 Carbon Dioxide 26 Anion Gap 7 L BUN 11.3 Creatinine 0.7 Est GFR (CKD-EPI)AfAm 132.87 Est GFR (CKD-EPI)NonAf 114.64 Random Glucose 162 H Calcium 8.3 L Phosphorus Cancelled 3.6 Magnesium 2.1 Total Bilirubin 0.3 AST 20 ALT 36 Alkaline Phosphatase 112 Creatine Kinase 114 Troponin I < 0.02 Total Protein 7.6 Albumin 3.6 Triglycerides Cholesterol Total LDL Cholesterol HDL Cholesterol Serum , Qual Negative Blood Type Antibody Screen 02/09/19 02/09/19 02/09/19 00:49 00:49 00:49 WBC 8.1 RBC 3.96 Hgb 11.8 Hct 35.3 MCV 89.2 MCH 29.8 MCHC 33.4 RDW 14.6 D Plt Count 288 MPV 7.9 Absolute Neuts (auto) 5.1 Neutrophils % 62.8 Lymphocytes % 27.9 Monocytes % 6.3 Eosinophils % 2.3 Basophils % 0.7 Nucleated RBC % 0 PT with INR INR PTT (Actin FS) 32.8 Sodium Potassium Chloride Carbon Dioxide Anion Gap BUN Creatinine Est GFR (CKD-EPI)AfAm Est GFR (CKD-EPI)NonAf Random Glucose Calcium Phosphorus Magnesium Total Bilirubin AST ALT Alkaline Phosphatase Creatine Kinase Cancelled Troponin I Cancelled Total Protein Albumin Triglycerides Cholesterol Total LDL Cholesterol HDL Cholesterol Serum , Qual Blood Type Antibody Screen ASSESSMENT/PLAN: Patient is a 34 year old female with history of obesity, presents with complaint of headache with associated right sided facial drooping. TIA vs. Compex Migraine -CT Head reveals no acute intracranial pathology. -Will follow MRI brain -Cardiac ECHO -Carotid duplex ultrasound -Aspirin 325mg PO; continue Aspirin 81mg PO daily -Atorvastatin 80mg PO daily -Physical therapy evaluation -Cardiac monitoring -Neurology recommendation (Dr. Arizmendi) -Fall precautions Obesity -BMI 39 -plater production consult requested -Follow HbA1c Hypocalcemia -Will repeat with morning labs; replete if remains deficient. FEN -IV normal saline at 75mL/ hour -Follow BMP -NPO; pending speech, swallow evaluation Prophylaxis -Lovenox 40mg subq daily Disposition -Admit to Telemetry (Stroke) floor. Visit type - Emergency Visit Emergency Visit: Yes ED Registration Date: 02/09/19 Care time: The patient presented to the Emergency Department on the above date and was hospitalized for further evaluation of their emergent condition. - New Patient This patient is new to me today: Yes Date on this admission: 02/09/19 - Critical Care Critical Care patient: No ATTENDING PHYSICIAN STATEMENT I saw and evaluated the patient. I reviewed the resident's note and discussed the case with the resident. I agree with the resident's findings and plan as documented. SUBJECTIVE: OBJECTIVE: ASSESSMENT AND PLAN:
--- NOTE | 2019-02-09 03:20 | PN.NIHSS ---
NIH Stroke Scale - Last Known Well Date/Time & Onset Date Last Known Well: 02/08/19 Time Last Known Well: 22:00 - Initial Evaluation Level of consciousness: Alert Ask patient the month and their age: Answers both correctly Ask patient to open & close eyes; make fist and let go: Obeys both correctly Best gaze (horizontal eye movement): Normal Visual field testing: No visual field loss Facial paresis (Show teeth/raise eyebrows/close eyes tight): Minor paralysis ( flattened nasolabial fold, asymmetry on smiling) (RIGHT lower face (V3 distribution)) Motor Function: Left Arm: Normal Motor Function: Right Arm: Normal (extends arm 90 (or 45) degrees for 10 seconds without drift Motor Function: Left Leg: Normal (extends leg 30 degrees for 5 seconds without drift) Motor Function: Right Leg: Normal (extends leg 30 degrees for 5 seconds without drift) Limb Ataxia: No ataxia Sensory(Use pinprick test arms,legs,trunk,face/side to side): Normal Best language (Describe picture, name items, read sentences): No Aphasia Dysarthria (read several words): Normal articulation Extinction and Inattention: No abnormality - Total Score NIH Stroke Scale Score: 1
[2019-02-09] MEDS ORDERED: ASPIRIN 325 MG ENTERIC COATED TABLET (FP) ONE (03:22)
[2019-02-09] MEDS ORDERED: ATORVASTATIN CA 40 MG TABLET (FP) ONE (03:23)
[2019-02-09] MEDS: ATORVASTATIN CA 80 MG TABLET (FP) PO SCH ×2 (03:29→21:27)
[2019-02-09 04:42] LABS: HEMATOCRIT 33.3 % (32.4-45.2); HEMOGLOBIN 11.2 GM/dL (10.7-15.3); LYMPH % 22.8 % (8-40); MCH 29.9 pg (25.7-33.7); MCHC 33.7 g/dl (32.0-36.0); MEAN CELL VOLUME 88.8 fl (80-96); MEAN PLT VOLUME 7.9 fl (7.5-11.1); MONO % 4.5 % (3.8-10.2); NEUT % 69.7 % (42.8-82.8); PLATELET COUNT 304 K/MM3 (134-434); RBC 3.75 M/mm3 (3.60-5.2); RDW 14.5 % (11.6-15.6); WHITE BLOOD COUNT 7.5 K/mm3 (4.0-10.0)
[2019-02-09 04:43] LABS: PH,URINE 5.5 (5.0-8.0); URINE APPEARANCE CLEAR; URINE BILIRUBIN NEGATIVE (NEGATIVE); URINE COLOR YELLOW; URINE GLUCOSE (UA) NEGATIVE (NEGATIVE); URINE KETONE NEGATIVE (NEGATIVE); URINE LEUK ESTERASE NEGATIVE (NEGATIVE); URINE NITRITE NEGATIVE (NEGATIVE); URINE PROTEIN NEGATIVE (NEGATIVE); URINE UROBILINOGEN 0.2 mg/dL (0.2-1.0)
[2019-02-09 06:21] LABS: ALBUMIN 3.3 g/dl (3.4-5.0); BILIRUBIN,TOTAL 0.3 mg/dL (0.2-1); BLOOD UREA NITROGEN 9.2 mg/dL (7-18); CALCIUM 8.1 mg/dL (8.5-10.1); CREATININE 0.5 mg/dL (0.55-1.3); POTASSIUM 4.6 mmol/L (3.5-5.1); TOT PROT 6.8 g/dl (6.4-8.2)
[2019-02-09] MEDS: ENOXAPARIN NA (PORCINE) 40 MG/0.4 ML DISP.SYRIN SQ SCH (11:05)
[2019-02-09] MEDS ORDERED: ACETAMINOPHEN/CAFFEINE/BUTALBITAL 1 TAB PO PRN (12:08)
[2019-02-09] MEDS ORDERED: ACETAMINOPHEN/CAFFEINE/BUTALBITAL 1 TAB ONE (16:13)
[2019-02-09] MEDS ORDERED: VALPROATE SODIUM 500 MG/5 ML VIAL IVPB ONE (16:41)
--- NOTE | 2019-02-09 16:53 | CONSULT ---
Consult - text type - Consultation Consultation Note: NEUROLOGY CONSULTATION is greatly appreciated: Events reviewed and discussed with ED MD last night and RN, today. Patient examined with her at the bedside. This 34 YO RH s woman with 5 children has had progressive headaches since December. Initially intermittent (2-3/week) and responsive to tylenol, they have become daily and unresponsive to increasing OTC analgesics. Pressing occipital headaches, worse at night, recently interrupting sleep. No visual changes or photophobia. No nausea. Patient and her deny prior headaches "like this." This AM, patient awoke with a headache and a "pulling" sensation over the right lower face. Transiently better after Fioricet but now, headache is returning CT of head and MRI of brain (reviewed): Normal studies. TSH elevate 5.63 ISABELL: OB=511/70. Neck supple. No evidence of external head trauma. Obese NEURO: Awake, alert. MS/Speech: Normal CN II-XII: Normal. Fundus exam is normal B/L without papilledema. No facial asymmetry. Motor: No drift or tremor. Normal strength, tone and bulk. Normal reflexes. Toes downgoing. Coord: No FTN Dystaxia Sensory: Normal Gait: Normal IMP: Normal neurological exam. Most likely migraine headaches converted to Chronic Daily headache syndrome (CDHS) due to analgesic overuse. SUGGEST: Load with depakote 500 mg IVPB Avoid tylenol and OTC analgesics Begin Topiramate 25 mg BID x 4 days then 50 mg BID Give sumatriptan 50-100 mg PO PRN. Ophthalmology consultation. Neurology f/u as outpatient for continued prophylactic Rx. Thank you very much, Andreas Arizmendi MD
--- NOTE | 2019-02-09 17:01 | EKG ---
Test Reason : Blood Pressure : / mmHG Vent. Rate : 085 BPM Atrial Rate : 085 BPM P-R Int : 172 ms QRS Dur : 092 ms QT Int : 406 ms P-R-T Axes : 059 042 046 degrees QTc Int : 483 ms NORMAL SINUS RHYTHM PROLONGED QT ABNORMAL ECG WHEN COMPARED WITH ECG OF 29-SEP-2018 21:53, NO SIGNIFICANT CHANGE WAS FOUND Confirmed by DANIEL SMITH MD ([id number]) on 02/09/2019 5:01:16 PM Referred By: Confirmed By:DANIEL SMITH MD
[2019-02-09] MEDS ORDERED: VALPROATE SODIUM 500 MG/5 ML VIAL ONE (17:08)
--- NOTE | 2019-02-09 17:27 | PN ---
Progress Note (short form) - Note Progress Note: SUBJECTIVE: Still complains of R frontotemporal headache. No nausea/vomiting. No visual disturbance. OBJECTIVE: Afebrile, Hemodynamcially Stable. Last Vital Signs Temp Pulse Resp BP Pulse Ox 98.2 F 70 18 100/58 L 100 02/09/19 15:20 02/09/19 15:20 02/09/19 15:20 02/09/19 15:20 02/09/19 15:20 HEENT - Atraumatic, Normocephalic. Heart - S1, S2, RRR Lungs - clear to auscultation Abdomen - Soft, non-tender. Bowel Sounds normal. Extremities - no edema, no calf tenderness. Neuro - AAO x 3. Mild flat of nasolabial fold on R. DAPHNIE. Tone/Power normal all extremities. Laboratory Results - last 24 hr 02/09/19 02/09/19 02/09/19 00:49 00:49 00:49 WBC RBC Hgb Hct MCV MCH MCHC RDW Plt Count MPV Absolute Neuts (auto) Neutrophils % Lymphocytes % Monocytes % Eosinophils % Basophils % Nucleated RBC % PT with INR 10.90 INR 0.92 PTT (Actin FS) 32.6 Sodium Potassium Chloride Carbon Dioxide Anion Gap BUN Creatinine Est GFR (CKD-EPI)AfAm Est GFR (CKD-EPI)NonAf Random Glucose Hemoglobin A1c % Calcium Phosphorus Magnesium Total Bilirubin AST ALT Alkaline Phosphatase Creatine Kinase Troponin I Total Protein Albumin Triglycerides 191 H Cholesterol 181 Total LDL Cholesterol 90 HDL Cholesterol 73 H TSH Serum , Qual Urine Color Urine Appearance Urine pH Ur Specific [place] Urine Protein Urine Glucose (UA) Urine Ketones Urine Blood Urine Nitrite Urine Bilirubin Urine Urobilinogen Ur Leukocyte Esterase Blood Type O POSITIVE Antibody Screen Negative 02/09/19 02/09/19 02/09/19 00:49 00:49 00:49 WBC RBC Hgb Hct MCV MCH MCHC RDW Plt Count MPV Absolute Neuts (auto) Neutrophils % Lymphocytes % Monocytes % Eosinophils % Basophils % Nucleated RBC % PT with INR INR PTT (Actin FS) Sodium 139 Potassium 3.8 Chloride 106 Carbon Dioxide 26 Anion Gap 7 L BUN 11.3 Creatinine 0.7 Est GFR (CKD-EPI)AfAm 132.87 Est GFR (CKD-EPI)NonAf 114.64 Random Glucose 162 H Hemoglobin A1c % Calcium 8.3 L Phosphorus Cancelled 3.6 Magnesium 2.1 Total Bilirubin 0.3 AST 20 ALT 36 Alkaline Phosphatase 112 Creatine Kinase 114 Troponin I < 0.02 Total Protein 7.6 Albumin 3.6 Triglycerides Cholesterol Total LDL Cholesterol HDL Cholesterol TSH Serum , Qual Negative Urine Color Urine Appearance Urine pH Ur Specific [place] Urine Protein Urine Glucose (UA) Urine Ketones Urine Blood Urine Nitrite Urine Bilirubin Urine Urobilinogen Ur Leukocyte Esterase Blood Type Antibody Screen 02/09/19 02/09/19 02/09/19 00:49 00:49 00:49 WBC 8.1 RBC 3.96 Hgb 11.8 Hct 35.3 MCV 89.2 MCH 29.8 MCHC 33.4 RDW 14.6 D Plt Count 288 MPV 7.9 Absolute Neuts (auto) 5.1 Neutrophils % 62.8 Lymphocytes % 27.9 Monocytes % 6.3 Eosinophils % 2.3 Basophils % 0.7 Nucleated RBC % 0 PT with INR INR PTT (Actin FS) 32.8 Sodium Potassium Chloride Carbon Dioxide Anion Gap BUN Creatinine Est GFR (CKD-EPI)AfAm Est GFR (CKD-EPI)NonAf Random Glucose Hemoglobin A1c % Calcium Phosphorus Magnesium Total Bilirubin AST ALT Alkaline Phosphatase Creatine Kinase Cancelled Troponin I Cancelled Total Protein Albumin Triglycerides Cholesterol Total LDL Cholesterol HDL Cholesterol TSH Serum , Qual Urine Color Urine Appearance Urine pH Ur Specific [place] Urine Protein Urine Glucose (UA) Urine Ketones Urine Blood Urine Nitrite Urine Bilirubin Urine Urobilinogen Ur Leukocyte Esterase Blood Type Antibody Screen 02/09/19 02/09/19 02/09/19 04:30 04:30 05:27 WBC 7.5 RBC 3.75 Hgb 11.2 Hct 33.3 MCV 88.8 MCH 29.9 MCHC 33.7 RDW 14.5 Plt Count 304 MPV 7.9 Absolute Neuts (auto) 5.2 Neutrophils % 69.7 Lymphocytes % 22.8 Monocytes % 4.5 Eosinophils % 2.0 Basophils % 1.0 Nucleated RBC % 0 PT with INR INR PTT (Actin FS) Sodium 141 Potassium 4.6 Chloride 109 H Carbon Dioxide 24 Anion Gap 9 BUN 9.2 Creatinine 0.5 L Est GFR (CKD-EPI)AfAm 148.42 Est GFR (CKD-EPI)NonAf 128.06 Random Glucose 106 Hemoglobin A1c % Calcium 8.1 L Phosphorus Magnesium Total Bilirubin 0.3 AST 21 ALT 30 Alkaline Phosphatase 99 Creatine Kinase Troponin I Total Protein 6.8 Albumin 3.3 L Triglycerides Cholesterol Total LDL Cholesterol HDL Cholesterol TSH 5.60 H Serum , Qual Urine Color Yellow Urine Appearance Clear Urine pH 5.5 Ur Specific [place] 1.016 Urine Protein Negative Urine Glucose (UA) Negative Urine Ketones Negative Urine Blood Negative Urine Nitrite Negative Urine Bilirubin Negative Urine Urobilinogen 0.2 Ur Leukocyte Esterase Negative Blood Type Antibody Screen 02/09/19 05:27 WBC RBC Hgb Hct MCV MCH MCHC RDW Plt Count MPV Absolute Neuts (auto) Neutrophils % Lymphocytes % Monocytes % Eosinophils % Basophils % Nucleated RBC % PT with INR INR PTT (Actin FS) Sodium Potassium Chloride Carbon Dioxide Anion Gap BUN Creatinine Est GFR (CKD-EPI)AfAm Est GFR (CKD-EPI)NonAf Random Glucose Hemoglobin A1c % 5.1 Calcium Phosphorus Magnesium Total Bilirubin AST ALT Alkaline Phosphatase Creatine Kinase Troponin I Total Protein Albumin Triglycerides Cholesterol Total LDL Cholesterol HDL Cholesterol TSH Serum , Qual Urine Color Urine Appearance Urine pH Ur Specific [place] Urine Protein Urine Glucose (UA) Urine Ketones Urine Blood Urine Nitrite Urine Bilirubin Urine Urobilinogen Ur Leukocyte Esterase Blood Type Antibody Screen Current Medications Generic Name Dose Route Start Last Admin Trade Name Freq PRN Reason Stop Dose Admin Aspirin 81 mg 02/11/19 10:00 Ecotrin - PO DAILY MOISÉS Atorvastatin Calcium 80 mg 02/09/19 03:16 02/09/19 03:29 Lipitor - PO 80 mg HS MOISÉS Administration Enoxaparin Sodium 40 mg 02/09/19 10:00 02/09/19 11:05 Lovenox - SQ Not Given DAILY MOISÉS Sodium Chloride 1,000 mls @ 75 mls/hr 02/09/19 03:15 02/09/19 03:29 Normal Saline - IV 75 mls/hr ASDIR MOISÉS Administration Topiramate 25 mg 02/09/19 22:00 Topamax - PO BID MOISÉS Tramadol HCl 50 mg 02/09/19 12:07 Ultram - PO Q6H PRN PAIN LEVEL 4 - 6 Home Medications Medication Instructions Recorded NK [No Known Home Medication] 09/29/18 ASSESSMENT/PLAN: 34 year old female with high BMI, presents with R sided headache associated with R sided facial droop, intermittent/worsening in severity over the past [address] Head - no acute findings MRI Brain - normal, no acute findings Carotid Duplex Echo pending. Evaluated by Neurology - suggest Loading with Valproate, Topiramate 2mg BI for 7 days foll by 50mg BID No evidence of CVA - will discontinue Aspirin and Statin. 2. Borderline L lateral LN in Neck, incidental finding on Carotid Duplex - for out-patient follow up. DVT Px - Lovenox SQ Visit type - Emergency Visit Emergency Visit: Yes ED Registration Date: 02/09/19 Care time: The patient presented to the Emergency Department on the above date and was hospitalized for further evaluation of their emergent condition. - New Patient This patient is new to me today: Yes Date on this admission: 02/09/19 - Critical Care Critical Care patient: No - Discharge Referral Referred to [facility] Med P.[facility].: No
[2019-02-09] MEDS: TOPIRAMATE 25 MG TABLET (FP) PO SCH (21:27)
[2019-02-09] MEDS: traMADol HCL 50 MG TABLET PO PRN (21:28)
[2019-02-09 22:55] VITALS: BMI 42.1
[2019-02-10] MEDS ORDERED: PT OWN MED DRAWER 7, Y5N ONE (09:25)
[2019-02-10] MEDS ORDERED: ASPIRIN COATED 81 MG TABLET.EC PO SCH (10:00)
--- NOTE | 2019-02-10 10:24 | CONSULT ---
Admitting History and Physical - Primary Care Physician PCP: Sylvester Concepcion - Admission History of Present Illness: 34 year old female with high BMI, presents with R sided headache associated with R sided facial droop, intermittent/worsening in severity over the past 2 months. Dx of Complicated Migraine CT Head - no acute findings MRI Brain - normal, no acute findings Selected Entries 02/10/19 02/10/19 02/10/19 02:00 06:00 08:27 Temperature 98.5 F 98.5 F 97.7 F Laboratory Tests 02/09/19 00:49 WBC 8.1 On reg diet/thin liquids. Limitations to Obtaining History: No Limitations - Past Medical History ...LMP: 04/24/17 ...: No - Past Surgical History Past Surgical History: Yes: Cholecystectomy - Smoking History Smoking history: Never smoked Have you smoked in the past 12 months: No Aproximately how many cigarettes per day: 0 - Alcohol/Substance Use Hx Alcohol Use: No History of Substance Use: reports: None. denies: Cocaine, Heroin, Marijuana, Prescription, Tranquilizers - Social History ADL: Independent History of Recent Travel: No History - Admission Reason For Visit: MIGRAINE HEADACHE, FACIAL DROOP - Diagnostics CT Scan: Report Reviewed MRI: Report Reviewed - General Mental Status: Alert and Oriented, Awake and Alert, Able to Follow Commands Attention: Intact Ability to Follow Directions: Excellent Head/Neck Control: WFL - Hearing Hearing: Normal Hearing Aide: No With Patient: No Speech Evaluation - Communication Primary Language: KAZAKH Communication: Yes: Within Normal Limits Oral Expression Ability: Yes: No Impairment - Swallow Evaluation/Bedside Assessment Current Nutritional Intake: Regular, Thin Liquids Oral Secretions: Yes: WF Recommendations - Speech Evaluation, Impression/Plan Impression: Speech/swallowing/cognition/language intact. - Dysphagia Impressions/Plan Swallowing Skills: WF Dysphagia Impressions: No Impairment *Silent aspiration: cannot be R/O at bedside - Recommendations Diet Consistency: Regular Medication Administration: Whole with water Liquids: Thin Liquids
[2019-02-10] MEDS: ENOXAPARIN NA (PORCINE) 40 MG/0.4 ML DISP.SYRIN SQ SCH (10:27)
[2019-02-10] MEDS: TOPIRAMATE 25 MG TABLET (FP) PO SCH (10:28)
--- NOTE | 2019-02-10 11:29 | ECHO ---
Name: JUANA HE Exam:Adult Echocardiogram Study Date: 02/10/2019 09:40 AM Age: 34 yrs Height: 61 in Weight: 210 lb BSA: 1.9 m2 MMode/2D Measurements & Calculations IVSd: 0.95 cm Ao root diam: 3.1 cm LVIDd: 5.6 cm LA dimension: 3.9 cm LVIDs: 3.1 cm ACS: 2.3 cm LVPWd: 0.88 cm IVSs: 1.7 cm LVPWs: 1.2 cm EDV(Teich): 154.3 ml ESV(Teich): 38.4 ml Doppler Measurements & Calculations MV E max lana: 76.0 cm/sec TR max lana: 194.6 cm/sec MV A max lana: 59.0 cm/sec TR max P.2 mmHg MV E/A: 1.3 Med Peak E' Lana: 8.7 cm/sec Med E/e': 8.8 Lat Peak E' Lana: 13.4 cm/sec Lat E/e': 5.7 Procedure A complete two-dimensional transthoracic echocardiogram was performed (2D, M-mode, Doppler and color flow Doppler). Left Ventricle The left ventricle is normal in size. Left ventricular systolic function is normal. Ejection Fraction = 60- 65%. No regional wall motion abnormalities noted. Right Ventricle The right ventricle is normal size. The right ventricular systolic function is normal. Atria The left atrial size is normal. Right atrial size is normal. Mitral Valve The mitral valve is normal in structure and function. There is no mitral regurgitation noted. Tricuspid Valve The tricuspid valve is normal in structure and function. There is mild tricuspid regurgitation. Right ventricular systolic pressure is normal. Aortic Valve The aortic valve is normal in structure and function. No aortic regurgitation is present. Pulmonic Valve The pulmonic valve is not well visualized. Great Vessels The aortic root is normal size. Pericardium/Pleura There is no pericardial effusion. Interpretation Summary The left ventricle is normal in size. Left ventricular systolic function is normal. No regional wall motion abnormalities noted. Ejection Fraction = 60-65%. The right ventricular systolic function is normal. The left atrial size is normal. Right atrial size is normal. There is mild tricuspid regurgitation. Right ventricular systolic pressure is normal. There is no pericardial effusion. Wilmer Hendrix MD 02/10/2019 11:29 AM
[2019-02-10] MEDS: traMADol HCL 50 MG TABLET PO PRN (13:50)
[2019-02-10 14:01] VITALS: BP 115/63; PULSE 76; TEMP 99
--- NOTE | 2019-02-10 14:11 | PN ---
Teaching Attending Note Name of Resident: Ty Hauser ATTENDING PHYSICIAN STATEMENT I saw and evaluated the patient. I reviewed the resident's note and discussed the case with the resident. I agree with the resident's findings and plan as documented. SUBJECTIVE: Reports improvement in R frontotemporal headache. No nausea/ vomiting. No visual disturbance. OBJECTIVE: Afebrile, Hemodynamcially Stable. Last Vital Signs Temp Pulse Resp BP Pulse Ox 99 F 76 20 115/63 99 02/10/19 14:00 02/10/19 14:02/10/19 14:02/10/19 14:02/10/19 08:26 Heart - S1, S2, RRR Lungs - clear to auscultation Abdomen - Soft, non-tender. Bowel Sounds normal. Extremities - no edema, no calf tenderness. Neuro - AAO x 3. DAPHNIE. Tone/Power normal all extremities. Laboratory Results - last 24 hr 02/09/19 05:27 Sodium 141 Potassium 4.6 Chloride 109 H Carbon Dioxide 24 Anion Gap 9 BUN 9.2 Creatinine 0.5 L Est GFR (CKD-EPI)AfAm 148.42 Est GFR (CKD-EPI)NonAf 128.06 Random Glucose 106 Calcium 8.1 L Total Bilirubin 0.3 AST 21 ALT 30 Alkaline Phosphatase 99 Total Protein 6.8 Albumin 3.3 L TSH 5.60 H Free T4 0.86 Current Medications Generic Name Dose Route Start Last Admin Trade Name Freq PRN Reason Stop Dose Admin Enoxaparin Sodium 40 mg 02/09/19 10:00 02/10/19 10:27 Lovenox - SQ 40 mg DAILY MOISÉS Administration Topiramate 25 mg 02/09/19 22:00 02/10/19 10:28 Topamax - PO 25 mg BID MOISÉS Administration Tramadol HCl 50 mg 02/09/19 12:07 02/10/19 13:50 Ultram - PO 50 mg Q6H PRN Administration PAIN LEVEL 4 - 6 Discharge Medications Medication Instructions Recorded Sumatriptan Succinate [Imitrex -] 50 mg PO DAILY PRN #30 tablet 02/10/19 Topiramate [Topamax -] 25 mg PO BID #6 tablet 02/10/19 Topiramate [Topamax] 50 mg PO BID #60 tablet 02/10/19 ASSESSMENT/PLAN: 34 year old female with high BMI, presents with R sided headache associated with R sided facial droop, intermittent/worsening in severity over the past 2 months. 1. Complicated Migraine - converted to Chronic Daily headache syndrome (CDHS) as per Neurology CT Head - no acute findings MRI Brain - normal, no acute findings Carotid Duplex - no hemodynamically significant stenosis. Echo - normal LV function. Evaluated by Neurology - suggest Loading with Valproate, Topiramate 2mg BID for 7 days foll by 50mg BID No evidence of CVA - will discontinue Aspirin and Statin. 2. Borderline L lateral LN in Neck, incidental finding on Carotid Duplex - for out-patient follow up. Will give Surgery follow up. Medically and Neurologically Stable for discharge with Neurology follow up and surgery follow up for L lateral neck lymph node.
--- NOTE | 2019-02-10 14:46 | DS ---
Physical Exam: SUBJECTIVE: Patient seen and examined at the bedside. She stated that she feels better and noted that her headache has subsided. Denies cp, sob, abd pain, n/v/c /d, fever, chills, dizziness, lightheadedness, visual changes, numbness, tingling, focal weakness, difficulty swallowing, photophobia, phonophobia. OBJECTIVE: Vital Signs Period Temp Pulse Resp BP Sys/[place] Pulse Ox Last 24 Hr 97.7 F-99 F 62-77 18-20 100-130/58-78 99-100 PHYSICAL EXAM GENERAL: The patient is awake, alert, and fully oriented, in no acute distress. HEAD: Normal with no signs of trauma. EYES: PERRL, extraocular movements intact, sclera anicteric, conjunctiva clear. ENT: Oropharynx clear without exudates, moist mucous membranes. NECK: Trachea midline, full range of motion, supple. LUNGS: Breath sounds equal, clear to auscultation bilaterally, no wheezes, no crackles, no accessory muscle use. HEART: Regular rate and rhythm, S1, S2 without murmur, rub. ABDOMEN: Soft, nontender, nondistended, normoactive bowel sounds, no guarding, no rebound, no masses. EXTREMITIES: 2+ pulses, warm, well-perfused, no edema. NEUROLOGICAL: Cranial nerves II through XII grossly intact. 5/5 muscle strength upper and lower extremities, sensation intact to gross touch throughout. PSYCH: Normal mood, normal affect. SKIN: Warm, dry, normal turgor, no rashes or lesions noted. LABS Laboratory Results - last 24 hr 02/09/19 05:27 Sodium 141 Potassium 4.6 Chloride 109 H Carbon Dioxide 24 Anion Gap 9 BUN 9.2 Creatinine 0.5 L Est GFR (CKD-EPI)AfAm 148.42 Est GFR (CKD-EPI)NonAf 128.06 Random Glucose 106 Calcium 8.1 L Total Bilirubin 0.3 AST 21 ALT 30 Alkaline Phosphatase 99 Total Protein 6.8 Albumin 3.3 L TSH 5.60 H Free T4 0.86 HOSPITAL COURSE: Tracy Adkins is a 34 year old female with history of obesity admitted for a complex migraine with facial drooping. Had CT and MRI which did not reveal any acute pathology. Carotid U/S noted an enlarged lymph node in the neck for which the patient will follow up outpatient with her PCP. Patient had echocardiogram which showed mild tricuspid regurg, EF 60-65%, and otherwise normal echo. Patient was seen by neurology who had one loading dose of valproate and patient will begin prophylactic migraine treatment with topiramate which will be uptitrated to 50mg bid in 4 days. Patient prescribed sumatriptan for breakthrough headaches. Patient was found to have elevated triglycerides and is to follow up with her PCP. Patient was found with elevated TSH and normal T4 and is to have repeat TSH in 4 -6 weeks. As per neurology, patient is advised to follow up with ophthalmology . Patient was notified of the plan, was in agreement, and reiterated the plan. Patient was discharged in stable medical condition. Date of Admission:02/10/19 Date of Discharge: 02/10/19 Minutes to complete discharge: 35 Discharge Summary Problems reviewed: Yes Reason For Visit: MIGRAINE HEADACHE, FACIAL DROOP Condition: Stable - Instructions Diet, Activity, Other Instructions: You were admitted to the hospital because of a migraine headache that you had. You were given medication in order to help with your headache. You were seen by a neurologist (brain doctor) who recommended medications for you to start taking and to follow up with the neurologist outpatient. You had a CT scan and MRI scan of your brain which did not show any new findings. You had a carotid doppler (ultrasound of the arteries of the neck) which showed an enlarged lymph node on the side of you neck. You are advised to follow up with your primary care doctor for this finding. MEDICATIONS START to take topiramate 25mg for the next 3 days. Your last dose will be on February. You will START to take topiramate 50mg afterwards. Your first dose will be on February. Take sumatriptan 50mg once a day only as needed if your headaches are bad during a particular day. Avoid overusing sumatriptan. DO NOT take on a daily basis. Continue to take all of your other home medications as prescribed. REFERRALS Please follow up with your primary care doctor, Dr. Bart Bass, within 1 week for elevated Triglycerides on your bloodwork. You will need follow up for the enlarged lymph node in your neck. For this please follow with Surgery for further Investigation. Please follow up with the neurologist, Dr. Andreas Arizmendi, within 1 week. If your neurologist requests, you may follow up with the compliance engineer products, Dr. Sylvester Lu. SPECIAL INSTRUCTIONS Your thyroid function tests were elevated but thyroid hormone test was normal. Please have a thyroid function tests in 4-6 weeks. Please follow up with your primary care doctor about your elevated triglycerides. If you have symptoms of worsening headaches, changes in your vision, fevers, complete numbness on one side of your body, trouble swallow, chest pain, shortness of breath, or any other general feelings of unwellness, please call 911 or go to you nearest emergency room. Referrals: Andreas Arizmendi MD [Staff Physician] - 1 Week Bart Bass MD [Primary Care Provider] - 1 Week Sylvester Harper MD [Staff Physician] - Ty Cyr MD [Staff Physician] - Disposition: HOME - Home Medications Comprehensive Discharge Medication List: Ambulatory Orders Sumatriptan Succinate [Imitrex -] 50 mg PO DAILY PRN #30 tablet 02/10/19 Topiramate [Topamax -] 25 mg PO BID #6 tablet 02/10/19 Topiramate [Topamax] 50 mg PO BID #60 tablet 02/10/19 Problem List - Problems (1) Facial droop Code(s): R29.810 - FACIAL WEAKNESS (2) Headache Code(s): R51 - HEADACHE Qualifiers: Headache type: unspecified Headache chronicity pattern: acute headache Intractability: not intractable Qualified Code(s): R51 - Headache This patient is new to me today: Yes Date on this admission: 02/10/19 Emergency Visit: Yes ED Registration Date: 02/10/19 Care time: The patient presented to the Emergency Department on the above date and was hospitalized for further evaluation of their emergent condition. Critical Care patient: No - Discharge Referral Referred to [facility] Med P.C.: No
[2019-02-11] MEDS ORDERED: ASPIRIN COATED 81 MG TABLET.EC PO SCH (10:00)
== END 2019-02-10 14:55 | disposition home or self-care (01) ==
LOC: JER 00:02 → INTOOBSV 03:22 → UNDOADMOB 03:22 → JERBED 03:22 → J4W 20:41 → JERBED 02-10 11:46
PROVIDERS: ADMIT Internal Medicine
PROC: 3E033NZ Introduction of Analgesics, Hypnotics, Sedatives into Peripheral Vein, Percutaneous Approach (ICD-10-PCS; principal; 2019-02-10)
PROC: 3E0337Z Introduction of Electrolytic and Water Balance Substance into Peripheral Vein, Percutaneous Approach (ICD-10-PCS; 2019-02-10)
PROC: 3E033GC Introduction of Other Therapeutic Substance into Peripheral Vein, Percutaneous Approach (ICD-10-PCS; 2019-02-10)
PROC: 3E013GC Introduction of Other Therapeutic Substance into Subcutaneous Tissue, Percutaneous Approach (ICD-10-PCS; 2019-02-10)
DX: G43.109 Migraine with aura, not intractable, without status migrainosus (principal); R29.810 Facial weakness; I51.7 Cardiomegaly; E83.51 Hypocalcemia; R59.9 Enlarged lymph nodes, unspecified; E66.9 Obesity, unspecified; Z68.41 Body mass index [BMI] 40.0-44.9, adult
CPT/HCPCS: 36415; 70450-TC; 70551-TC; 71045-TC-FY; 80053; 80061; 81003; 82550; 83036; 83721; 83735; 84100; 84439; 84443; 84484; 84703; 85025; 85610; 85730; 86850; 86900; 86901; 93005; 93010; 93306-TC; 93880-TC; 96372; 96374; 96375; 99285-25; G0378; J0131; J7030

== ENCOUNTER 2020-04-25 18:15 | Emergency (ER) | payer OTHER ==
[2020-04-25 18:19] VITALS: BP 117/50; PULSE 69; TEMP 98; BMI 42.3
[2020-04-25] MEDS ORDERED: METHOCARBAMOL 500 MG TABLET PO ONE (18:36)
[2020-04-25] MEDS ORDERED: KETOROLAC TROMETHAMINE 30 MG/1 ML VIAL IM ONE (18:36)
[2020-04-25] MEDS ORDERED: LIDOCAINE 5% TOPICAL PATCH TP ONE (18:36)
[2020-04-25] MEDS ORDERED: METHOCARBAMOL 500 MG TABLET ONE (18:40)
[2020-04-25] MEDS ORDERED: LIDOCAINE 5% TOPICAL PATCH ONE (18:40)
[2020-04-25] MEDS ORDERED: KETOROLAC TROMETHAMINE 30 MG/1 ML VIAL ONE (18:41)
== END 2020-04-25 19:52 | disposition home or self-care (01) ==
LOC: JERFT 18:15
PROC: 3E0233Z Introduction of Anti-inflammatory into Muscle, Percutaneous Approach (ICD-10-PCS; principal; 2020-04-25)
DX: S39.012A Strain of muscle, fascia and tendon of lower back, initial encounter (principal)
CPT/HCPCS: 99284-25

== ENCOUNTER 2020-12-15 11:55 | Emergency (ER) | payer OTHER ==
[2020-12-15 12:25] VITALS: BP 106/66; PULSE 72; TEMP 98; BMI 40.4
[2020-12-15] MEDS ORDERED: ACETAMINOPHEN 1000 MG/100 ML VIAL IVPB ONE (13:23)
[2020-12-15 14:04] LABS: BASO % 0.6 % (0-2.0); EOS % 1.9 % (0-4.5); HEMATOCRIT 36.2 % (32.4-45.2); HEMOGLOBIN 12.3 GM/dL (10.7-15.3); LYMPH % 25.1 % (8-40); MCH 31.1 pg (25.7-33.7); MEAN CELL VOLUME 91.5 fl (80-96); MEAN PLT VOLUME 7.7 fl (7.5-11.1); MONO % 6.2 % (3.8-10.2); NEUT % 66.2 % (42.8-82.8); PLATELET COUNT 310 10^3/uL (134-434); RBC 3.95 M/mm3 (3.60-5.2); RDW 13.9 % (11.6-15.6); WHITE BLOOD COUNT 7.6 K/mm3 (4.0-10.0)
[2020-12-15 14:23] LABS: ALBUMIN 3.6 g/dl (3.4-5.0); CALCIUM 8.9 mg/dL (8.5-10.1)
[2020-12-15 14:24] LABS: BLOOD UREA NITROGEN 6.2 mg/dL (7-18)
[2020-12-15 14:27] LABS: CREATININE 0.5 mg/dL (0.55-1.3); EPI CELLS >36 /uL (0-25.1); HYALINE CASTS 1 /uL (0-3.1); PH,URINE 6.5 (5.0-8.0); URINE APPEARANCE CLEAR; URINE BACTERIA 836 /uL (0-1359); URINE BILIRUBIN NEGATIVE (NEGATIVE); URINE COLOR YELLOW; URINE GLUCOSE (UA) NEGATIVE (NEGATIVE); URINE KETONE NEGATIVE (NEGATIVE); URINE LEUK ESTERASE TRACE (NEGATIVE); URINE NITRITE NEGATIVE (NEGATIVE); URINE PROTEIN NEGATIVE (NEGATIVE); URINE RBC 2 /uL (0-23.9); URINE UROBILINOGEN 0.2 mg/dL (0.2-1.0); URINE WBC 21 /uL (0-25.8)
[2020-12-15 14:28] LABS: BILIRUBIN,TOTAL 0.3 mg/dL (0.2-1); TOT PROT 7.8 g/dl (6.4-8.2)
[2020-12-15] MEDS ORDERED: ACETAMINOPHEN INJECTION 100 ML IVPB ONE (15:04)
== END 2020-12-15 19:59 | disposition home or self-care (01) ==
LOC: JER 11:55
PROC: 3E033GC Introduction of Other Therapeutic Substance into Peripheral Vein, Percutaneous Approach (ICD-10-PCS; principal; 2020-12-15)
DX: O20.0 Threatened abortion (principal); Z3A.00 Weeks of gestation of pregnancy not specified
CPT/HCPCS: 36415; 76817-TC; 80053; 81003; 84702; 85025; 86850; 86900; 86901; 87086; 99284-25; J0131

== ENCOUNTER 2020-12-17 08:43 | Emergency (ER) | payer OTHER ==
[2020-12-17 09:16] VITALS: BP 120/69; PULSE 73; TEMP 98.5; BMI 40.4
== END 2020-12-17 13:49 | disposition home or self-care (01) ==
LOC: JERFT 08:43 → JER 08:43 → JERFT 13:49
DX: O20.0 Threatened abortion (principal); Z3A.00 Weeks of gestation of pregnancy not specified
CPT/HCPCS: 36415; 76817-TC; 84702; 99284-25

== ENCOUNTER 2021-03-05 19:45 | Emergency (ER) | payer OTHER ==
[2021-03-05 20:36] VITALS: BP 113/74; PULSE 85; TEMP 98; BMI 32.1
== END 2021-03-05 20:41 | disposition home or self-care (01) ==
LOC: JER 19:45
DX: R05.9 Cough, unspecified (principal); R53.83 Other fatigue; R50.9 Fever, unspecified
CPT/HCPCS: 87804; 99283-25; C9803; U0003; U0005

== ENCOUNTER 2022-12-11 19:55 | Emergency (ER) | payer OTHER ==
[2022-12-11 20:05] VITALS: BP 124/67; PULSE 69; RESP 19; TEMP 98.7; BMI 39.1
[2022-12-11 20:39] LABS: EPI CELLS 32 /uL (0-25.1); HYALINE CASTS 0 /uL (0-3.1); PH,URINE 6.5 (5.0-8.0); URINE APPEARANCE CLEAR; URINE BACTERIA 1031 /uL (0-1359); URINE BILIRUBIN NEGATIVE (NEGATIVE); URINE COLOR YELLOW; URINE GLUCOSE (UA) TRACE (NEGATIVE); URINE KETONE NEGATIVE (NEGATIVE); URINE LEUK ESTERASE 2+ (NEGATIVE); URINE NITRITE NEGATIVE (NEGATIVE); URINE PROTEIN NEGATIVE (NEGATIVE); URINE RBC 12 /uL (0-23.9); URINE WBC 154 /uL (0-25.8)
[2022-12-11] MEDS ORDERED: ACETAMINOPHEN 500 MG TABLET (FP) PO ONE (22:48)
[2022-12-11 22:52] LABS: HCG,QUALITATIVE URINE Negative
[2022-12-11] MEDS ORDERED: ACETAMINOPHEN 500 MG TABLET (FP) ONE (23:11)
[2022-12-11] MEDS ORDERED: KETOROLAC TROMETHAMINE 30 MG/1 ML VIAL IVPUSH ONE (23:43)
[2022-12-12] MEDS ORDERED: KETOROLAC TROMETHAMINE 30 MG/1 ML VIAL ONE (00:15)
[2022-12-12 00:20] LABS: BASO % 0.6 % (0-2.0); EOS % 1.6 % (0-4.5); HEMATOCRIT 36.1 % (32.4-45.2); HEMOGLOBIN 12.5 GM/dL (10.7-15.3); LYMPH % 30.3 % (8-40); MCH 31.2 pg (25.7-33.7); MCHC 34.7 g/dl (32.0-36.0); MEAN CELL VOLUME 89.9 fl (80-96); MEAN PLT VOLUME 7.6 fl (7.5-11.1); NEUT % 60.5 % (42.8-82.8); PLATELET COUNT 305 10^3/uL (134-434); RBC 4.01 M/mm3 (3.60-5.2); RDW 13.8 % (11.6-15.6); WHITE BLOOD COUNT 7.5 K/mm3 (4.0-10.0)
[2022-12-12 00:41] LABS: CALCIUM 8.1 mg/dL (8.5-10.1); POTASSIUM 4.1 mmol/L (3.5-5.1)
[2022-12-12 00:42] LABS: ALBUMIN 3.7 g/dl (3.4-5.0); BLOOD UREA NITROGEN 13.2 mg/dL (7-18)
[2022-12-12 00:46] LABS: CREATININE 0.6 mg/dL (0.55-1.3)
[2022-12-12 00:47] LABS: BILIRUBIN,TOTAL 0.4 mg/dL (0.2-1); TOT PROT 7.7 g/dl (6.4-8.2)
[2022-12-12] MEDS ORDERED: LIDOCAINE HCL 1%, 10 MG/ML (20ML VIAL) ONE (02:27)
== END 2022-12-12 05:17 | disposition home or self-care (01) ==
LOC: JERFT 19:55 → JER 19:55
PROC: 3E0333Z Introduction of Anti-inflammatory into Peripheral Vein, Percutaneous Approach (ICD-10-PCS; principal; 2022-12-11)
PROC: 3E02329 Introduction of Other Anti-infective into Muscle, Percutaneous Approach (ICD-10-PCS; 2022-12-11)
DX: R10.31 Right lower quadrant pain (principal); N72 Inflammatory disease of cervix uteri; D25.9 Leiomyoma of uterus, unspecified; N83.8 Other noninflammatory disorders of ovary, fallopian tube and broad ligament; R30.0 Dysuria
CPT/HCPCS: 36415; 74176-TC; 76830-TC; 80053; 81003; 83605; 84703; 85025; 87086; 87186; 87491; 87591; 99284-25

== ENCOUNTER 2023-07-14 12:28 | Emergency (ER) | payer OTHER ==
[2023-07-14 12:37] VITALS: BMI 38.1
[2023-07-14] MEDS ORDERED: ACETAMINOPHEN 325 MG TABLET (FP) ONE (13:40)
[2023-07-14] MEDS: ACETAMINOPHEN 325 MG TABLET (FP) PO ONE (14:11)
[2023-07-14 14:14] LABS: BASO % 0.4 % (0-2.0); EOS % 1.2 % (0-4.5); HEMATOCRIT 36.9 % (32.4-45.2); HEMOGLOBIN 12.6 GM/dL (10.7-15.3); LYMPH % 23.9 % (8-40); MEAN CELL VOLUME 91.1 fl (80-96); MEAN PLT VOLUME 7.8 fl (7.5-11.1); MONO % 4.8 % (3.8-10.2); NEUT % 69.7 % (42.8-82.8); PLATELET COUNT 285 10^3/uL (134-434); RBC 4.06 M/mm3 (3.60-5.2); RDW 14.6 % (11.6-15.6); WHITE BLOOD COUNT 6.2 K/mm3 (4.0-10.0)
[2023-07-14 14:16] LABS: EPI CELLS >36 /uL (0-25.1); HYALINE CASTS 3 /uL (0-3.1); PH,URINE 5.5 (5.0-8.0); URINE APPEARANCE CLOUDY; URINE BACTERIA 3105 /uL (0-1359); URINE BILIRUBIN NEGATIVE (NEGATIVE); URINE COLOR YELLOW; URINE GLUCOSE (UA) TRACE (NEGATIVE); URINE KETONE NEGATIVE (NEGATIVE); URINE LEUK ESTERASE 2+ (NEGATIVE); URINE NITRITE NEGATIVE (NEGATIVE); URINE PROTEIN TRACE (NEGATIVE); URINE RBC 11 /uL (0-23.9); URINE WBC 275 /uL (0-25.8)
[2023-07-14 14:36] LABS: POTASSIUM 3.9 mmol/L (3.5-5.1)
[2023-07-14 14:38] LABS: CALCIUM 8.9 mg/dL (8.5-10.1)
[2023-07-14 14:39] LABS: ALBUMIN 3.8 g/dl (3.4-5.0); BLOOD UREA NITROGEN 8.2 mg/dL (7-18)
[2023-07-14 14:42] LABS: CREATININE 0.6 mg/dL (0.55-1.3)
[2023-07-14 14:44] LABS: BILIRUBIN,TOTAL 0.6 mg/dL (0.2-1)
[2023-07-14 15:02] LABS: YEAST NONE SEEN (NEGATIVE)
[2023-07-14] MEDS ORDERED: CEPHALEXIN MONOHYDRATE 500 MG CAPSULE (UD) ONE (17:30)
[2023-07-14 17:37] VITALS: BP 124/72; PULSE 68; RESP 16; TEMP 97.9
[2023-07-14] MEDS: CEPHALEXIN MONOHYDRATE 500 MG CAPSULE (UD) PO ONE (17:37)
== END 2023-07-14 17:37 | disposition home or self-care (01) ==
LOC: JER 12:28
DX: O20.9 Hemorrhage in early pregnancy, unspecified (principal); O26.891 Other specified pregnancy related conditions, first trimester; R10.31 Right lower quadrant pain; Z3A.01 Less than 8 weeks gestation of pregnancy
CPT/HCPCS: 36415; 76817-TC; 80053; 81003; 84702; 85025; 86850; 86900; 86901; 87086; 99284-25